=== PATIENT | female | born 1995 | race Caucasian/White ===

== ENCOUNTER 2016-12-28 17:32 | Emergency (ER) | payer BC, MEDICAID ==
[2016-12-28 17:43] VITALS: BP 108/73
[2016-12-28] MEDS ORDERED: Bupivacaine 0.5% 10 ML SDV INJECT ONE (17:54)
--- NOTE | 2016-12-28 18:32 | EDM.PDOC ---
ED HPI GENERAL MEDICAL PROBLEM - General Chief Complaint: ENT Problem Stated Complaint: TOOTH PAIN Time Seen by Provider: 12/28/16 17:39 Source of Information: Reports: Patient History Limitations: Reports: No Limitations - History of Present Illness INITIAL COMMENTS - FREE TEXT/NARRATIVE: The patient presents with dental pain. This has been going on for about a week. She had a filling done but that is not working. She will need to go get a root canal but she is almost 37 weeks and she cannot go at this time. She denies fever or chills. Onset: Gradual Duration: Week(s): Location: Reports: Face (Right lower dental pain) Quality: Reports: Sharp Severity: Severe Improves with: Reports: None Worsens with: Reports: None Associated Symptoms: Reports: No Other Symptoms Right Lower Tooth/Teeth Pain Score (Numeric/FACES): 7 - Related Data Allergies Allergy/AdvReac Type Severity Reaction Status Date / Time No Known Allergies Allergy Verified 05/17/16 16:43 Home Meds: Home Meds Hydrocodone/Acetaminophen [Hydrocodon-Acetaminophen 5-325] 1 - 2 each PO Q6HR PRN #10 tablet 12/28/16 [Rx] PNV95/Ferrous Fumarate/FA [ Tablet] 1 tab PO DAILY 12/28/16 [History] Penicillin V Potassium 500 mg PO Q6HR #40 tab 12/28/16 [Rx] Past Medical History - Past Health History Medical/Surgical History: Denies 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: Other Dermatologic History: skin rash/scabbed area Social & Family History - Family History Family Medical History: Noncontributory - Tobacco Use Smoking Status *Q: Never Smoker Years of Tobacco use: 4 Packs/Tins Daily: 0.5 - Caffeine Use Caffeine Use: Reports: Coffee - Alcohol Use Days Per Week of Alcohol Use: 0 - Recreational Drug Use Recreational Drug Use: Yes Drug Use in Last 12 Months: Yes Recreational Drug Type: Reports: Marijuana/Hashish Recreational Drug Use Frequency: Socially ED ROS ENT - Review of Systems Review Of Systems: See Below Constitutional: Reports: No Symptoms HEENT: Reports: Dental Pain Respiratory: Reports: No Symptoms Cardiovascular: Reports: No Symptoms Endocrine: Reports: No Symptoms GI/Abdominal: Reports: No Symptoms : Reports: No Symptoms Musculoskeletal: Reports: No Symptoms Skin: Reports: No Symptoms ED EXAM, ENT - Physical Exam Exam: See Below Exam Limited By: No Limitations General Appearance: Alert, No Apparent Distress Ears: Normal External Exam Nose: Normal Inspection Mouth/Throat: Other (Pain upon palpation to the right lower jaw with erythema and edema) Course - Vital Signs Last Recorded V/S: Last Vital Signs Temp 98.7 F 12/28/16 17:39 Pulse 94 12/28/16 17:39 Resp 18 12/28/16 17:39 BP 108/73 12/28/16 17:39 Pulse Ox 99 12/28/16 17:39 - Orders/Labs/Meds Meds: Medications Discontinued Medications Generic Name Dose Route Start Last Admin Trade Name Dora PRN Reason Stop Dose Admin Bupivacaine HCl 10 ml 12/28/16 17:54 Sensorcaine-Mpf 0.5% INJECT 12/28/16 17:55 ONETIME ONE - Re-Assessments/Exams Free Text/Narrative Re-Assessment/Exam: 12/28/16 18:29 I used bupivocaine 0.5% to do a dental block. I injected 3ccs of the bupivocaine and I did an inferior alveolar block. She had good anaesthesia obtained. I will get her on some pen VK and 10 hydrocodone. She needs to follow up with her dentist. Departure - Departure Time of Disposition: 18:35 Disposition: Home, Self-Care 01 Condition: Good Clinical Impression: Dental abscess, Pain, dental - Discharge Information Prescriptions: Hydrocodone/Acetaminophen [Hydrocodon-Acetaminophen 5-325] 1 - 2 each PO Q6HR PRN #10 tablet PRN Reason: Pain Penicillin V Potassium 500 mg PO Q6HR #40 tab Referrals: Gayathri Alcantar PA-C [Primary Care Provider] - Forms: ED Department Discharge Additional Instructions: Take the amoxicillin 4 times per day. Take the hydrocodone 1 to 2 pills every 6 hours as needed for pain. Please return if you are worse.
== END 2016-12-28 18:50 | disposition home or self-care (01) ==
LOC: JD.ED 17:32
DX: O99.613 Diseases of the digestive system complicating pregnancy, third trimester (principal); K04.7 Periapical abscess without sinus; Z3A.37 37 weeks gestation of pregnancy
CPT/HCPCS: 64400; 99283-25

== ENCOUNTER 2017-01-25 03:58 | Inpatient (IN) | payer MEDICAID ==
[2017-01-25] MEDS: Lactated Ringers 1,000 ML IV SCH ×4 (04:35→16:55)
[2017-01-25] MEDS ORDERED: Nalbuphine 20 MG/1 ML Amp IVPUSH PRN (04:40)
[2017-01-25] MEDS ORDERED: Sodium Chloride 0.9% 10 ML Syringe FLUSH PRN (04:40)
[2017-01-25] MEDS ORDERED: Lidocaine 1% 50 ML MDV INJECT ONE (04:40)
[2017-01-25] MEDS ORDERED: Ondansetron 4 MG/2 ML SDV IVPUSH PRN (04:40)
[2017-01-25] MEDS ORDERED: Oxytocin/Lactated Ringers 10 UNIT/1,000 ML BAG IV SCH ×2 (04:45→17:00)
[2017-01-25] MEDS ORDERED: ePHEDrine 50 MG/ML SDV IVPUSH PRN (04:53)
[2017-01-25] MEDS ORDERED: diphenhydrAMINE 50 MG/ML SDV IVPUSH PRN (04:53)
[2017-01-25] MEDS ORDERED: fentaNYL 100 MCG/2 ML SDV EPIDUR PRN (04:53)
[2017-01-25] MEDS ORDERED: Bupivacaine/fentaNYL/NS 100 ML Bag EPIDUR SCH (05:00)
[2017-01-25] MEDS ORDERED: fentaNYL 100 MCG/2 ML SDV ONE (05:09)
--- NOTE | 2017-01-25 05:28 | PCM.PREANE ---
Preanesthetic Assessment - Anesthesia/Transfusion/Family Hx Anesthesia History: No Prior Anesthesia Family History of Anesthesia Reaction: No Transfusion History: No Prior Transfusion(s) - Review of Systems General: No Symptoms Pulmonary: No Symptoms Cardiovascular: No Symptoms Gastrointestinal: No Symptoms Neurological: No Symptoms Other: Reports: None - Physical Assessment Pulse: 74 O2 Sat by Pulse Oximetry: 97 Respiratory Rate: 20 Blood Pressure: 116/56 Temperature: 37.1 C Height: 1.63 m Weight: 80.286 kg ASA Class: 2 Mental Status: Alert & Oriented x3 Airway Class: Mallampati = 1 Dentition: Reports: Normal Dentition Thyro-Mental Finger Breadths: 3 Mouth Opening Finger Breadths: 3 ROM/Head Extension: Full Lungs: Clear to Auscultation, Normal Respiratory Effort Cardiovascular: Regular Rate, Regular Rhythm - Lab Values: Laboratory Last Values WBC 16.95 K/mm3 (3.98-10.04) H 01/25/17 04:32 RBC 3.47 M/mm3 (3.98-5.22) L 01/25/17 04:32 Hgb 11.8 gm/L (11.2-15.7) 01/25/17 04:32 Hct 33.9 % (34.1-44.9) L 01/25/17 04:32 MCV 97.7 fl (79.4-94.8) H 01/25/17 04:32 MCH 34.0 pg (25.6-32.2) H 01/25/17 04:32 MCHC 34.8 g/dl (32.2-35.5) 01/25/17 04:32 RDW Std Deviation 44.8 fL (36.4-46.3) 01/25/17 04:32 Plt Count 234 K/mm3 (182-369) 01/25/17 04:32 MPV 11.0 fl (9.4-12.3) 01/25/17 04:32 Neut % (Auto) 75.3 % (34.0-71.1) H 01/25/17 04:32 Lymph % (Auto) 13.9 % (19.3-51.7) L 01/25/17 04:32 [place] % (Auto) 10.0 % (4.7-12.5) 01/25/17 04:32 Eos % (Auto) 0.4 (0.7-5.8) L 01/25/17 04:32 Baso % (Auto) 0.1 % (0.1-1.2) 01/25/17 04:32 Neut # (Auto) 12.76 K/mm3 (1.56-6.13) H 01/25/17 04:32 Lymph # (Auto) 2.36 K/mm3 (1.18-3.74) 01/25/17 04:32 [place] # (Auto) 1.69 K/mm3 (0.24-0.36) H 01/25/17 04:32 Eos # (Auto) 0.07 K/mm3 (0.04-0.36) 01/25/17 04:32 Baso # (Auto) 0.02 K/mm3 (0.01-0.08) 01/25/17 04:32 - Allergies Allergies/Adverse Reactions: Allergies Allergy/AdvReac Type Severity Reaction Status Date / Time No Known Allergies Allergy Verified 01/25/17 04:40 - Anesthesia Plan Pre-Op Medication Ordered: None - Acknowledgements Anesthesia Type Planned: Epidural Pt an Appropriate Candidate for the Planned Anesthesia: Yes Alternatives and Risks of Anesthesia Discussed w Pt/Guardian: Yes Pt/Guardian Understands and Agrees with Anesthesia Plan: Yes PreAnesthesia Questionnaire - Past Health History Medical/Surgical History: Denies Medical/Surgical History Gastrointestinal History: Reports: GERD APPLICATION SUPPORT History: Reports: Other Dermatologic History: skin rash/scabbed area - SUBSTANCE USE Smoking Status *Q: Never Smoker Tobacco Use Within Last Twelve Months: Cigarettes Days Per Week of Alcohol Use: 0 Recreational Drug Use History: Yes Recreational Drug Type: Reports: Marijuana/Hashish - HOME MEDS Home Medications: Home Meds Hydrocodone/Acetaminophen [Hydrocodon-Acetaminophen 5-325] 1 - 2 each PO Q6HR PRN #10 tablet 12/28/16 [Rx] PNV95/Ferrous Fumarate/FA [ Tablet] 1 tab PO DAILY 12/28/16 [History] Penicillin V Potassium 500 mg PO Q6HR #40 tab 12/28/16 [Rx] - CURRENT (IN HOUSE) MEDS Current Meds: Current Medications Diphenhydramine HCl (Benadryl) 25 mg IVPUSH Q6H PRN PRN Reason: Itching Ephedrine Sulfate (Ephedrine Sulfate) 5 mg IVPUSH ASDIRECTED PRN PRN Reason: HYPOTENTSION Fentanyl (Sublimaze) 100 mcg EPIDUR Q3H PRN PRN Reason: PAIN Last Admin: 01/25/17 05:17 Dose: 100 mcg Fentanyl/Bupivacaine HCl (Fentanyl/Bupivacaine/Ns 2 Mcg-0.125% 100 Ml) 100 ml EPIDUR ASDIRECTED LAZ Last Admin: 01/25/17 05:17 Dose: 100 ml Lactated Ringer's (Ringers, Lactated) 1,000 mls @ 100 mls/hr IV ASDIRECTED LAZ Oxytocin/Lactated Ringer's (Pitocin In Lr 10 Units/1,000 Ml) 10 unit in 1,000 mls @ 500 mls/hr IV .CONTINUOUS [facility] Nalbuphine HCl (Nubain) 10 mg IVPUSH Q2H PRN PRN Reason: Pain (moderate 4-6) Ondansetron HCl (Zofran) 4 mg IVPUSH Q4H PRN PRN Reason: Nausea/Vomiting Sodium Chloride (Saline Flush) 10 ml FLUSH ASDIRECTED PRN PRN Reason: Keep Vein Open Discontinued Medications Fentanyl (Sublimaze) Confirm Administered Dose 100 mcg .ROUTE .STK-MED ONE Stop: 01/25/17 05:10 Lidocaine HCl (Xylocaine 1%) 50 ml INJECT ONETIME ONE Stop: 01/25/17 04:41
--- NOTE | 2017-01-25 07:29 | PCM.LDHP ---
L&D History of Present Illness - General Date of Service: 01/25/17 Admit Problem/Dx: Patient Status Order with Admit Dx/Problem 01/25/17 04:41 Patient Status [ADT] Routine Admission Diagnosis/Problem Admission Diagnosis/Problem Normal labor Source of Information: Patient History Limitations: Reports: No Limitations - History of Present Illness Introduction:: Patient is a 21 y/o at 40 5/7 wks who presented in labor. Initially had presented yesterday in latent labor and was sent home as only 1-2 cm. Re- presented earlier this AM and found to be 4 cm. Doing well since. Now has received her epidural. 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: Reports: : 1 Para: 0 LMP (Approximate): Psychiatric History: Reports: Addiction, Other (See Below) Other Psychiatric History: Hx of drug use, TCH, cocaine, methamphetamines Other Dermatologic History: skin rash/scabbed area Social & Family History - Family History Family Medical History: Noncontributory - Tobacco Use Smoking Status *Q: Never Smoker Years of Tobacco use: 4 Packs/Tins Daily: 0.5 Used Tobacco, but Quit: Yes Month Tobacco Last Used: august Second Hand Smoke Exposure: Yes - Caffeine Use Caffeine Use: Reports: Coffee - Alcohol Use Alcohol Use History: No Days Per Week of Alcohol Use: 0 - Recreational Drug Use Recreational Drug Use: Yes Drug Use in Last 12 Months: Yes Recreational Drug Type: Reports: Marijuana/Hashish Other Recreational Drug Type: see pre terrence Recreational Drug Use Frequency: Socially H&P Review of Systems - Review of Systems: Review Of Systems: See Below General: Reports: No Symptoms Pulmonary: Reports: No Symptoms Cardiovascular: Reports: No Symptoms Gastrointestinal: Reports: Abdominal Pain Genitourinary: Reports: No Symptoms Musculoskeletal: Reports: No Symptoms Psychiatric: Reports: No Symptoms L&D Exam - Exam Exam: See Below - Vital Signs Vital Signs: Last Vital Signs Temp 37.1 C 01/25/17 05:27 Pulse 74 01/25/17 05:27 Resp 20 01/25/17 05:27 BP 116/56 L 01/25/17 05:27 Pulse Ox 97 01/25/17 05:27 Weight: 80.286 kg - OB Specific Contraction Intensity: Moderate Movement: Active Heart Tones: Present Heart Tones per Min: 140 Heart Rate (FHR) Variability: Moderate (6-25 bmp) Presentation: Vertex - Elizabeth Score Elizabeth Score Effacement: 51-70% Elizabeth Score Dilation: 3-4 cm (Per nursing assessment) Elizabeth Score Infant's Station: -1 ,0 - Exam General: Alert, Oriented, Cooperative Lungs: Clear to Auscultation, Normal Respiratory Effort Cardiovascular: Regular Rate, Regular Rhythm GI/Abdominal Exam: Soft, Non-Tender Genitourinary: Normal external exam Extremities: Normal Inspection Skin: Warm, Dry, Intact - Patient Data Lab Results Last 24 hrs: Laboratory Results - last 24 hr 01/25/17 01/25/17 Range/Units 04:32 04:32 WBC 16.95 H (3.98-10.04) K/mm3 RBC 3.47 L (3.98-5.22) M/mm3 Hgb 11.8 (11.2-15.7) gm/L Hct 33.9 L (34.1-44.9) % MCV 97.7 H (79.4-94.8) fl MCH 34.0 H (25.6-32.2) pg MCHC 34.8 (32.2-35.5) g/dl RDW Std Deviation 44.8 (36.4-46.3) fL Plt Count 234 (182-369) K/mm3 MPV 11.0 (9.4-12.3) fl Neut % (Auto) 75.3 H (34.0-71.1) % Lymph % (Auto) 13.9 L (19.3-51.7) % [place] % (Auto) 10.0 (4.7-12.5) % Eos % (Auto) 0.4 L (0.7-5.8) Baso % (Auto) 0.1 (0.1-1.2) % Neut # (Auto) 12.76 H (1.56-6.13) K/mm3 Lymph # (Auto) 2.36 (1.18-3.74) K/mm3 [place] # (Auto) 1.69 H (0.24-0.36) K/mm3 Eos # (Auto) 0.07 (0.04-0.36) K/mm3 Baso # (Auto) 0.02 (0.01-0.08) K/mm3 Manual Slide Review Normal smear Blood Type A NEGATIVE Gel Antibody Screen Negative Result Diagrams: 01/25/17 04:32 - Problem List (1) 40 weeks gestation of SNOMED Code(s): 24993012 ICD Code: Z3A.40 - 40 WEEKS GESTATION OF Status: Acute Current Visit: Yes (2) Normal labor SNOMED Code(s): 62950467 ICD Code: O80 - ENCOUNTER FOR FULL-TERM UNCOMPLICATED DELIVERY; Z37.9 - OUTCOME OF DELIVERY, UNSPECIFIED Status: Acute Current Visit: Yes (3) Rh negative state in antepartum period SNOMED Code(s): 920662721, 080513135 ICD Code: O09.899 - SUPERVISION OF OTHER HIGH RISK PREGNANCIES, UNSP TRIMESTER Status: Acute Current Visit: Yes Problem List Initiated/Reviewed/Updated: Yes Orders Last 24hrs: Active Orders 24 hr Category Date Time Status Patient Status [ADT] Routine ADT 01/25/17 04:41 Active Activity as Tolerated [RC] PFP Care 01/25/17 04:41 Active Communication Order [RC] ASDIRECTED Care 01/25/17 04:41 Active Communication Order [RC] ASDIRECTED Care 01/25/17 04:53 Active Cooling Warming Measures [RC] ASDIRECTED Care 01/25/17 04:53 Active Heart Tones [RC] ASDIRECTED Care 01/25/17 04:41 Active Notify Provider [RC] ASDIRECTED Care 01/25/17 04:53 Active Notify Provider [RC] PFP Care 01/25/17 04:41 Active Notify Provider [RC] PRN Care 01/25/17 04:41 Active Oxygen Therapy [RC] ASDIRECTED Care 01/25/17 04:53 Active Peripheral IV Care [RC] . DIRECTED Care 01/25/17 04:41 Active Pulse Oximetry [RC] ASDIRECTED Care 01/25/17 04:53 Active Verify Patient Consent Obtain [RC] ASDIRECTED Care 01/25/17 04:53 Active Vital Signs [RC] PER UNIT ROUTINE Care 01/25/17 04:41 Active Vital Signs [RC] Q1H Care 01/25/17 04:53 Active Regular Diet [DIET] Diet 01/25/17 Breakfast Active PATIENT RETYPE [BBK] Stat Lab 01/25/17 04:32 Results TYPE AND SCREEN [BBK] Stat Lab 01/25/17 04:32 Results Bupivacaine/fentaNYL/NS [fentaNYL/Bupivacaine/NS 2 MCG- Med 01/25/17 05:00 Active 0.125% 100 ML] 100 ml EPIDUR ASDIRECTED Lactated Ringers [Ringers, Lactated] 1,000 ml Med 01/25/17 04:45 Active IV ASDIRECTED Nalbuphine [Nubain] Med 01/25/17 04:40 Active 10 mg IVPUSH Q2H PRN Ondansetron [Zofran] Med 01/25/17 04:40 Active 4 mg IVPUSH Q4H PRN Oxytocin/Lactated Ringers [Pitocin in LR 10 Units/1,000 Med 01/25/17 04:45 Active ML] 10 unit in 1,000 ml IV .CONTINUOUS Sodium Chloride 0.9% [Saline Flush] Med 01/25/17 04:40 Active 10 ml FLUSH ASDIRECTED PRN diphenhydrAMINE [Benadryl] Med 01/25/17 04:53 Active 25 mg IVPUSH Q6H PRN ePHEDrine [ePHEDrine Sulfate] Med 01/25/17 04:53 Active 5 mg IVPUSH ASDIRECTED PRN fentaNYL [Sublimaze] Med 01/25/17 04:53 Active 100 mcg EPIDUR Q3H PRN Electronic Heart Tones Ext w TOCO [WOMSER] Oth 01/25/17 04:41 Ordered Routine Electronic Heart Tones Internal [WOMSER] Per Unit Oth 01/25/17 04:41 Ordered Routine Peripheral IV Insertion Adult [OM.PC] Routine Oth 01/25/17 04:41 Ordered Resuscitation Status Routine Resus Stat 01/25/17 04:40 Ordered Medication Orders Diphenhydramine HCl (Benadryl) 25 mg IVPUSH Q6H PRN PRN Reason: Itching Ephedrine Sulfate (Ephedrine Sulfate) 5 mg IVPUSH ASDIRECTED PRN PRN Reason: HYPOTENTSION Fentanyl (Sublimaze) 100 mcg EPIDUR Q3H PRN PRN Reason: PAIN Last Admin: 01/25/17 05:17 Dose: 100 mcg Fentanyl/Bupivacaine HCl (Fentanyl/Bupivacaine/Ns 2 Mcg-0.125% 100 Ml) 100 ml EPIDUR ASDIRECTED LAZ Last Admin: 01/25/17 05:17 Dose: 100 ml Lactated Ringer's (Ringers, Lactated) 1,000 mls @ 100 mls/hr IV ASDIRECTED LAZ Oxytocin/Lactated Ringer's (Pitocin In Lr 10 Units/1,000 Ml) 10 unit in 1,000 mls @ 500 mls/hr IV .CONTINUOUS LAZ Nalbuphine HCl (Nubain) 10 mg IVPUSH Q2H PRN PRN Reason: Pain (moderate 4-6) Ondansetron HCl (Zofran) 4 mg IVPUSH Q4H PRN PRN Reason: Nausea/Vomiting Sodium Chloride (Saline Flush) 10 ml FLUSH ASDIRECTED PRN PRN Reason: Keep Vein Open Assessment/Plan Comment:: 21 t/o at 40 5/7 wks who presents in labor * CBC and T&S * UDS for hx of drug use (prior to ) and cord collection at delivery * GBS negative, no need for antibiotics * Epidural in place * Rh negative, assess baby blood type after delivery * Anticipate
--- NOTE | 2017-01-25 16:50 | PCM.PNLD ---
Labor Progress Note - VS & Meds Vital Signs: Last Vital Signs Temp 37.1 C 01/25/17 05:27 Pulse 74 01/25/17 05:27 Resp 20 01/25/17 05:27 BP 116/56 L 01/25/17 05:27 Pulse Ox 97 01/25/17 05:27 Active Medications: Current Medications Diphenhydramine HCl (Benadryl) 25 mg IVPUSH Q6H PRN PRN Reason: Itching Ephedrine Sulfate (Ephedrine Sulfate) 5 mg IVPUSH ASDIRECTED PRN PRN Reason: HYPOTENTSION Fentanyl (Sublimaze) 100 mcg EPIDUR Q3H PRN PRN Reason: PAIN Last Admin: 01/25/17 05:17 Dose: 100 mcg Fentanyl/Bupivacaine HCl (Fentanyl/Bupivacaine/Ns 2 Mcg-0.125% 100 Ml) 100 ml EPIDUR ASDIRECTED LAZ Last Admin: 01/25/17 05:17 Dose: 100 ml Lactated Ringer's (Ringers, Lactated) 1,000 mls @ 100 mls/hr IV ASDIRECTED LAZ Last Admin: 01/25/17 08:50 Dose: 100 mls/hr Oxytocin/Lactated Ringer's (Pitocin In Lr 10 Units/1,000 Ml) 10 unit in 1,000 mls @ 500 mls/hr IV .CONTINUOUS LAZ Nalbuphine HCl (Nubain) 10 mg IVPUSH Q2H PRN PRN Reason: Pain (moderate 4-6) Ondansetron HCl (Zofran) 4 mg IVPUSH Q4H PRN PRN Reason: Nausea/Vomiting Sodium Chloride (Saline Flush) 10 ml FLUSH ASDIRECTED PRN PRN Reason: Keep Vein Open Discontinued Medications Fentanyl (Sublimaze) Confirm Administered Dose 100 mcg .ROUTE .STK-MED ONE Stop: 01/25/17 05:10 Last Admin: 01/25/17 13:57 Dose: Not Given Lidocaine HCl (Xylocaine 1%) 50 ml INJECT ONETIME ONE Stop: 01/25/17 04:41 - Uterine Contractions Uterine Monitoring Mode: External [place] Contraction Intensity: Moderate Uterine Resting Tone: Soft - Monitoring Monitor Mode: External Ultrasound Heart Rate (FHR) Baseline: 135 Heart Rate (FHR) Variability: Moderate (6-25 bmp) Accelerations: Present, 15x15 Decelerations: None Strip Review: Category II - Labor Progress (Free Text) Labor Progress: Patient checked around 1130 and was 6 cm. Will allow patient to continue to labor on her own. Reassess as needed.
--- NOTE | 2017-01-25 16:51 | PCM.PNLD ---
Labor Progress Note - VS & Meds Vital Signs: Last Vital Signs Temp 37.1 C 01/25/17 05:27 Pulse 74 01/25/17 05:27 Resp 20 01/25/17 05:27 BP 116/56 L 01/25/17 05:27 Pulse Ox 97 01/25/17 05:27 Active Medications: Current Medications Diphenhydramine HCl (Benadryl) 25 mg IVPUSH Q6H PRN PRN Reason: Itching Ephedrine Sulfate (Ephedrine Sulfate) 5 mg IVPUSH ASDIRECTED PRN PRN Reason: HYPOTENTSION Fentanyl (Sublimaze) 100 mcg EPIDUR Q3H PRN PRN Reason: PAIN Last Admin: 01/25/17 05:17 Dose: 100 mcg Fentanyl/Bupivacaine HCl (Fentanyl/Bupivacaine/Ns 2 Mcg-0.125% 100 Ml) 100 ml EPIDUR ASDIRECTED LAZ Last Admin: 01/25/17 05:17 Dose: 100 ml Lactated Ringer's (Ringers, Lactated) 1,000 mls @ 100 mls/hr IV ASDIRECTED LAZ Last Admin: 01/25/17 08:50 Dose: 100 mls/hr Oxytocin/Lactated Ringer's (Pitocin In Lr 10 Units/1,000 Ml) 10 unit in 1,000 mls @ 500 mls/hr IV .CONTINUOUS LAZ Nalbuphine HCl (Nubain) 10 mg IVPUSH Q2H PRN PRN Reason: Pain (moderate 4-6) Ondansetron HCl (Zofran) 4 mg IVPUSH Q4H PRN PRN Reason: Nausea/Vomiting Sodium Chloride (Saline Flush) 10 ml FLUSH ASDIRECTED PRN PRN Reason: Keep Vein Open Discontinued Medications Fentanyl (Sublimaze) Confirm Administered Dose 100 mcg .ROUTE .STK-MED ONE Stop: 01/25/17 05:10 Last Admin: 01/25/17 13:57 Dose: Not Given Lidocaine HCl (Xylocaine 1%) 50 ml INJECT ONETIME ONE Stop: 01/25/17 04:41 - Uterine Contractions Uterine Monitoring Mode: External [place] Contraction Intensity: Moderate Uterine Resting Tone: Soft - Monitoring Monitor Mode: External Ultrasound Heart Rate (FHR) Baseline: 140 Heart Rate (FHR) Variability: Moderate (6-25 bmp) Accelerations: Present, 15x15 Decelerations: None Strip Review: Category II - Vaginal Exam Dilation (cm): 8 Effacement (Percent): 90 Station: 0 Cervical Position: Midposition - Labor Progress (Free Text) Labor Progress: Patient checked by nursing at approximately 1445 and 8 cm. Still currently 8 cm. AROM performed with release of clear fluid. Will reassess in another 2-3 hours. If no change at that time will initiate pitocin.
--- NOTE | 2017-01-25 21:45 | PCM.DEL ---
L & D Note - General Info Date of Service: 01/25/17 - Delivery Note Labor: Augmented by ARM, Augmented by Oxytocin Delivery Outcome: Livebirth Infant Delivery Method: Spontaneous Vaginal Delivery Presentation: Left Occiput Anterior (ROME) Nuchal Cord: None Anesthesia Type: Epidural Amniotic Fluid Description: Clear Episiotomy Type: None Laceration: 2nd Degree, Perineal Suture type: Vicryl Suture size: 2-0 Placenta: Intact, Spontaneous Cord: 3 Vessels Estimated Blood Loss: 250 Resuscitation Needed: Yes [place]: Suctioned, Stimulated, Warmed, [place] Used, Warmer Used Delivery Comments (Free Text/Narrative):: Patient found to be complete and began pushing. With maternal pushing effort head delivered from an ROME presentation. No nuchal cord present. With gentle downward traction the shoulders and body delivered. Infant placed on maternal abdomen. Cord clamped and cut. Cord blood obtained. Placenta allowed time to separate and spontaneously expelled. Inspection of the perineum showed a second-degree laceration which was repaired with a 2-0 Vicryl in the typical fashion. - Patient Data Vitals - Most Recent: Last Vital Signs Temp 37.1 C 01/25/17 05:27 Pulse 74 01/25/17 05:27 Resp 20 01/25/17 05:27 BP 116/56 L 01/25/17 05:27 Pulse Ox 97 01/25/17 05:27 Weight - Most Recent: 80.286 kg I&O - Last 24 Hours: Intake & Output 01/25/17 01/25/17 01/25/17 06:59 14:59 22:59 Intake Total 120 Balance 120 Lab Results Last 24 Hours: Laboratory Results - last 24 hr 01/25/17 01/25/17 Range/Units 04:32 04:32 WBC 16.95 H (3.98-10.04) K/mm3 RBC 3.47 L (3.98-5.22) M/mm3 Hgb 11.8 (11.2-15.7) gm/L Hct 33.9 L (34.1-44.9) % MCV 97.7 H (79.4-94.8) fl MCH 34.0 H (25.6-32.2) pg MCHC 34.8 (32.2-35.5) g/dl RDW Std Deviation 44.8 (36.4-46.3) fL Plt Count 234 (182-369) K/mm3 MPV 11.0 (9.4-12.3) fl Neut % (Auto) 75.3 H (34.0-71.1) % Lymph % (Auto) 13.9 L (19.3-51.7) % [place] % (Auto) 10.0 (4.7-12.5) % Eos % (Auto) 0.4 L (0.7-5.8) Baso % (Auto) 0.1 (0.1-1.2) % Neut # (Auto) 12.76 H (1.56-6.13) K/mm3 Lymph # (Auto) 2.36 (1.18-3.74) K/mm3 [place] # (Auto) 1.69 H (0.24-0.36) K/mm3 Eos # (Auto) 0.07 (0.04-0.36) K/mm3 Baso # (Auto) 0.02 (0.01-0.08) K/mm3 Manual Slide Review Normal smear Blood Type A NEGATIVE Gel Antibody Screen Negative Med Orders - Current: Current Medications Diphenhydramine HCl (Benadryl) 25 mg IVPUSH Q6H PRN PRN Reason: Itching Ephedrine Sulfate (Ephedrine Sulfate) 5 mg IVPUSH ASDIRECTED PRN PRN Reason: HYPOTENTSION Fentanyl (Sublimaze) 100 mcg EPIDUR Q3H PRN PRN Reason: PAIN Last Admin: 01/25/17 05:17 Dose: 100 mcg Fentanyl/Bupivacaine HCl (Fentanyl/Bupivacaine/Ns 2 Mcg-0.125% 100 Ml) 100 ml EPIDUR ASDIRECTED LAZ Last Admin: 01/25/17 05:17 Dose: 100 ml Lactated Ringer's (Ringers, Lactated) 1,000 mls @ 100 mls/hr IV ASDIRECTED LAZ Last Admin: 01/25/17 16:55 Dose: 100 mls/hr Oxytocin/Lactated Ringer's (Pitocin In Lr 10 Units/1,000 Ml) 10 unit in 1,000 mls @ 500 mls/hr IV .CONTINUOUS LAZ Oxytocin/Lactated Ringer's (Pitocin In Lr 10 Units/1,000 Ml) 10 unit in 1,000 mls @ 12 mls/hr IV TITRATE LAZ; 2 MUNITS/MIN PRN Reason: Protocol Last Admin: 01/25/17 17:16 Dose: 2 munits/min, 12 mls/hr Nalbuphine HCl (Nubain) 10 mg IVPUSH Q2H PRN PRN Reason: Pain (moderate 4-6) Ondansetron HCl (Zofran) 4 mg IVPUSH Q4H PRN PRN Reason: Nausea/Vomiting Sodium Chloride (Saline Flush) 10 ml FLUSH ASDIRECTED PRN PRN Reason: Keep Vein Open Discontinued Medications Fentanyl (Sublimaze) Confirm Administered Dose 100 mcg .ROUTE .STK-MED ONE Stop: 01/25/17 05:10 Last Admin: 01/25/17 13:57 Dose: Not Given Lidocaine HCl (Xylocaine 1%) 50 ml INJECT ONETIME ONE Stop: 01/25/17 04:41 - Problem List & Annotations (1) 40 weeks gestation of SNOMED Code(s): 80914384 Code(s): Z3A.40 - 40 WEEKS GESTATION OF Status: Acute Current Visit: Yes (2) Normal labor SNOMED Code(s): 61431729 Code(s): O80 - ENCOUNTER FOR FULL-TERM UNCOMPLICATED DELIVERY; Z37.9 - OUTCOME OF DELIVERY, UNSPECIFIED Status: Acute Current Visit: Yes (3) Rh negative state in antepartum period SNOMED Code(s): 435431499, 115800100 Code(s): O09.899 - SUPERVISION OF OTHER HIGH RISK PREGNANCIES, UNSP TRIMESTER Status: Acute Current Visit: Yes - Problem List Review Problem List Initiated/Reviewed/Updated: Yes - My Orders Last 24 Hours: My Active Orders 01/25/17 04:40 Nalbuphine [Nubain] 10 mg IVPUSH Q2H PRN Ondansetron [Zofran] 4 mg IVPUSH Q4H PRN Sodium Chloride 0.9% [Saline Flush] 10 ml FLUSH ASDIRECTED PRN Resuscitation Status Routine 01/25/17 04:41 Patient Status [ADT] Routine Activity as Tolerated [RC] PFP Communication Order [RC] ASDIRECTED Heart Tones [RC] ASDIRECTED Notify Provider [RC] PFP Notify Provider [RC] PRN Peripheral IV Care [RC] . DIRECTED Vital Signs [RC] PER UNIT ROUTINE Electronic Heart Tones Ext w TOCO [WOMSER] Routine Electronic Heart Tones Internal [WOMSER] Per Unit Routine Peripheral IV Insertion Adult [OM.PC] Routine 01/25/17 04:45 Lactated Ringers [Ringers, Lactated] 1,000 ml IV ASDIRECTED Oxytocin/Lactated Ringers [Pitocin in LR 10 Units/1,000 ML] 10 unit in 1,000 ml IV .CONTINUOUS 01/25/17 17:00 Oxytocin/Lactated Ringers [Pitocin in LR 10 Units/1,000 ML] 10 unit in 1,000 ml IV TITRATE 01/25/17 21:31 DRUG SCREEN, URINE [URCHEM] Routine 01/25/17 21:32 Patient Status Manage Transfer [TRANSFER] Routine 01/25/17 Breakfast Regular Diet [DIET] - Assessment Assessment:: 21 y/o G1 now P1001 PPD#0 from at 40 5/7 wks - Plan Plan:: * Routine cares * Encourage breast feeding * Rh negative, assess baby blood type after delivery * Discharge home tomorrow
[2017-01-25] MEDS ORDERED: Bupivacaine 0.25% 10 ML SDV ONE (22:22)
[2017-01-25] MEDS ORDERED: Docusate Sodium 100 MG Cap PO PRN (23:36)
[2017-01-25] MEDS ORDERED: Benzocaine/Menthol 20%-0.5% Spray 56 GM Canister TOP PRN (23:36)
[2017-01-25] MEDS ORDERED: Witch Hazel Medicated Pads 100/Jar TOP PRN (23:36)
[2017-01-25] MEDS ORDERED: Acetaminophen 325 MG Tab PO PRN (23:36)
[2017-01-25] MEDS ORDERED: Lanolin 100% Cream 7 GM Tube TOP PRN (23:36)
[2017-01-25] MEDS: Ibuprofen 600 MG Tab PO PRN (23:50)
--- NOTE | 2017-01-26 08:04 | PCM.PNPP ---
- General Info Date of Service: 01/26/17 Functional Status: Reports: Pain Controlled, Tolerating Diet, Ambulating, Urinating - Review of Systems General: Reports: No Symptoms Pulmonary: Reports: No Symptoms Cardiovascular: Reports: No Symptoms Gastrointestinal: Reports: No Symptoms Genitourinary: Reports: Other (Swelling / soreness) Musculoskeletal: Reports: No Symptoms Neurological: Reports: No Symptoms - Patient Data Vital Signs - Most Recent: Last Vital Signs Temp 37.1 C 01/25/17 05:27 Pulse 74 01/25/17 05:27 Resp 20 01/25/17 05:27 BP 116/56 L 01/25/17 05:27 Pulse Ox 97 01/25/17 05:27 Weight - Most Recent: 80.286 kg Lab Results - Last 24 Hours: Laboratory Results - last 24 hr 01/25/17 Range/Units 04:32 Blood Type A NEGATIVE Gel Antibody Screen Negative Med Orders - Current: Current Medications Acetaminophen (Tylenol) 650 mg PO Q4H PRN PRN Reason: mild pain or fever Benzocaine/Menthol (Dermoplast Pain Relief [place]) 0 gm TOP ASDIRECTED PRN PRN Reason: Perineal Comfort Measure Last Admin: 01/25/17 23:49 Dose: 1 sprays(dnu) Docusate Sodium (Colace) 100 mg PO BID PRN PRN Reason: Constipation Last Admin: 01/25/17 23:50 Dose: 100 mg Emollient Ointment (Lansinoh Hpa) 0 gm TOP ASDIRECTED PRN PRN Reason: Sore Nipples Ibuprofen (Motrin) 600 mg PO Q6H PRN PRN Reason: Mild pain or fever Last Admin: 01/25/17 23:50 Dose: 600 mg Witch Kayy (Tucks) 1 pad TOP ASDIRECTED PRN PRN Reason: Hemorrhoid pain Last Admin: 01/25/17 23:49 Dose: 1 applic Discontinued Medications Diphenhydramine HCl (Benadryl) 25 mg IVPUSH Q6H PRN PRN Reason: Itching Ephedrine Sulfate (Ephedrine Sulfate) 5 mg IVPUSH ASDIRECTED PRN PRN Reason: HYPOTENTSION Fentanyl (Sublimaze) 100 mcg EPIDUR Q3H PRN PRN Reason: PAIN Last Admin: 01/25/17 05:17 Dose: 100 mcg Fentanyl (Sublimaze) Confirm Administered Dose 100 mcg .ROUTE .STK-MED ONE Stop: 01/25/17 05:10 Last Admin: 01/25/17 13:57 Dose: Not Given Fentanyl/Bupivacaine HCl (Fentanyl/Bupivacaine/Ns 2 Mcg-0.125% 100 Ml) 100 ml EPIDUR ASDIRECTED LAZ Last Admin: 01/25/17 05:17 Dose: 100 ml Lactated Ringer's (Ringers, Lactated) 1,000 mls @ 100 mls/hr IV ASDIRECTED LAZ Last Admin: 01/25/17 16:55 Dose: 100 mls/hr Oxytocin/Lactated Ringer's (Pitocin In Lr 10 Units/1,000 Ml) 10 unit in 1,000 mls @ 500 mls/hr IV .CONTINUOUS LAZ Oxytocin/Lactated Ringer's (Pitocin In Lr 10 Units/1,000 Ml) 10 unit in 1,000 mls @ 12 mls/hr IV TITRATE LAZ; 2 MUNITS/MIN PRN Reason: Protocol Last Admin: 01/25/17 17:16 Dose: 2 munits/min, 12 mls/hr Lidocaine HCl (Xylocaine 1%) 50 ml INJECT ONETIME ONE Stop: 01/25/17 04:41 Nalbuphine HCl (Nubain) 10 mg IVPUSH Q2H PRN PRN Reason: Pain (moderate 4-6) Ondansetron HCl (Zofran) 4 mg IVPUSH Q4H PRN PRN Reason: Nausea/Vomiting Sodium Chloride (Saline Flush) 10 ml FLUSH ASDIRECTED PRN PRN Reason: Keep Vein Open - Interaction Infant Disposition, : [place] in Room with Family Interaction: Holding Infant Infant Feeding: Attempted ; Nursed Fair/Poor, Bottle Fed Infant Support Person: Mother, Other (see below) - Recovery Exam Fundal Tone: Firm Fundal Level: At Umbilicus Fundal Placement: Midline Bladder Status: Voiding Urinary Elimination: Voided - Exam General: Alert, Oriented, Cooperative GI/Abdominal Exam: Soft, Non-Tender Extremities: Pedal Edema Skin: Warm, Dry, Intact - Problem List & Annotations (1) 40 weeks gestation of SNOMED Code(s): 76181351 Code(s): Z3A.40 - 40 WEEKS GESTATION OF Status: Acute Current Visit: Yes (2) Normal labor SNOMED Code(s): 12410289 Code(s): O80 - ENCOUNTER FOR FULL-TERM UNCOMPLICATED DELIVERY; Z37.9 - OUTCOME OF DELIVERY, UNSPECIFIED Status: Acute Current Visit: Yes (3) Rh negative state in antepartum period SNOMED Code(s): 848782382, 222871389 Code(s): O09.899 - SUPERVISION OF OTHER HIGH RISK PREGNANCIES, UNSP TRIMESTER Status: Acute Current Visit: Yes (4) Vaginal delivery SNOMED Code(s): 512677058 Code(s): O80 - ENCOUNTER FOR FULL-TERM UNCOMPLICATED DELIVERY Status: Acute Current Visit: Yes - Problem List Review Problem List Initiated/Reviewed/Updated: Yes - My Orders Last 24 Hours: My Active Orders 01/25/17 14:45 DRUG SCREEN, URINE [URCHEM] Routine 01/25/17 23:36 Activity as Tolerated [RC] PER UNIT ROUTINE Vital Signs [RC] ASDIRECTED Acetaminophen [Tylenol] 650 mg PO Q4H PRN Benzocaine/Menthol [Dermoplast Pain Relief [place]] See Dose Instructions TOP ASDIRECTED PRN Docusate Sodium [Colace] 100 mg PO BID PRN Ibuprofen [Motrin] 600 mg PO Q6H PRN Lanolin [Lansinoh HPA] See Dose Instructions TOP ASDIRECTED PRN Witch Kayy [Tucks] 1 pad TOP ASDIRECTED PRN Assess Lochia [WOMSER] Per Unit Routine Assess Uterine Involution [WOMSER] Per Unit Routine Breast Pump [WOMSER] Per Unit Routine Heat Therapy [OM.PC] PRN Ice Therapy [OM.PC] Per Unit Routine Perineal Care [OM.PC] Per Unit Routine Peripheral IV Discontinue [OM.PC] Routine Sitz Bath [OM.PC] Per Unit Routine 01/26/17 23:36 Heat Therapy [OM.PC] PRN - Assessment Assessment:: 21 y/o G1 now P1001 PPD#1 from at 40 5/7 wks - Plan Plan:: * Routine cares * Encourage breast feeding * Rh negative, Baby Rh positive. Will need Rhogam today * Discharge home tomorrow
--- NOTE | 2017-01-26 09:13 | PCM48HPAN ---
Post Anesthesia Note - EVALUATION WITHIN 48HRS OF ANESTHETIC Vital Signs in Normal Range: Yes Patient Participated in Evaluation: Yes Respiratory Function Stable: Yes Airway Patent: Yes Cardiovascular Function Stable: Yes Hydration Status Stable: Yes Pain Control Satisfactory: Yes Nausea and Vomiting Control Satisfactory: Yes Mental Status Recovered: Yes
[2017-01-26] MEDS: Ibuprofen 600 MG Tab PO PRN (11:29)
[2017-01-27 05:29] VITALS: BP 124/80
--- NOTE | 2017-01-27 07:10 | PCM.PNPP ---
- General Info Date of Service: 01/27/17 Functional Status: Reports: Pain Controlled, Tolerating Diet, Ambulating, Urinating - Review of Systems General: Reports: No Symptoms Pulmonary: Reports: No Symptoms Cardiovascular: Reports: No Symptoms Gastrointestinal: Reports: No Symptoms Genitourinary: Reports: No Symptoms Musculoskeletal: Reports: No Symptoms - Patient Data Vital Signs - Most Recent: Last Vital Signs Temp 36.8 C 01/27/17 04:58 Pulse 94 01/27/17 04:58 Resp 16 01/27/17 04:58 BP 124/80 01/27/17 04:58 Pulse Ox 97 01/27/17 04:58 Weight - Most Recent: 80.286 kg I&O - Last 24 Hours: Intake & Output 01/26/17 01/27/17 01/27/17 22:59 06:59 14:59 Intake Total 721 Balance 721 Lab Results - Last 24 Hours: Laboratory Results - last 24 hr 01/25/17 01/26/17 Range/Units 14:45 08:30 Urine Opiates Screen Negative (NEGATIVE) Ur Buprenorphine Scrn Negative (NEGATIVE) Ur Oxycodone Screen Negative (NEGATIVE) Urine Methadone Screen Negative (NEGATIVE) Ur Propoxyphene Screen Negative (NEGATIVE) Ur Barbiturates Screen Negative (NEGATIVE) Ur Tricyclics Screen Negative (NEGATIVE) Ur Phencyclidine Scrn Negative (NEGATIVE) Ur Amphetamine Screen Negative (NEGATIVE) U Methamphetamines Scrn Negative (NEGATIVE) U Benzodiazepines Scrn Negative (NEGATIVE) U Cocaine Metab Screen Negative (NEGATIVE) U Marijuana (THC) Screen Negative (NEGATIVE) Blood Type A NEGATIVE Gel Antibody Screen Negative Screen 0 ros/5 flds - neg RhIG Candidate? Yes Rhogam Indicated Yes, baby rh pos H Med Orders - Current: Current Medications Acetaminophen (Tylenol) 650 mg PO Q4H PRN PRN Reason: mild pain or fever Benzocaine/Menthol (Dermoplast Pain Relief [place]) 0 gm TOP ASDIRECTED PRN PRN Reason: Perineal Comfort Measure Last Admin: 01/25/17 23:49 Dose: 1 sprays(dnu) Docusate Sodium (Colace) 100 mg PO BID PRN PRN Reason: Constipation Last Admin: 01/25/17 23:50 Dose: 100 mg Emollient Ointment (Lansinoh Hpa) 0 gm TOP ASDIRECTED PRN PRN Reason: Sore Nipples Last Admin: 01/27/17 02:22 Dose: 1 applic Ibuprofen (Motrin) 600 mg PO Q6H PRN PRN Reason: Mild pain or fever Last Admin: 01/26/17 11:29 Dose: 600 mg Witch Kayy (Tucks) 1 pad TOP ASDIRECTED PRN PRN Reason: Hemorrhoid pain Last Admin: 01/25/17 23:49 Dose: 1 applic Discontinued Medications Bupivacaine HCl (Sensorcaine-Mpf 0.25%) 10 ml .ROUTE .STK-MED ONE Stop: 01/25/17 22:23 Diphenhydramine HCl (Benadryl) 25 mg IVPUSH Q6H PRN PRN Reason: Itching Ephedrine Sulfate (Ephedrine Sulfate) 5 mg IVPUSH ASDIRECTED PRN PRN Reason: HYPOTENTSION Fentanyl (Sublimaze) 100 mcg EPIDUR Q3H PRN PRN Reason: PAIN Last Admin: 01/25/17 05:17 Dose: 100 mcg Fentanyl (Sublimaze) Confirm Administered Dose 100 mcg .ROUTE .STK-MED ONE Stop: 01/25/17 05:10 Last Admin: 01/25/17 13:57 Dose: Not Given Fentanyl/Bupivacaine HCl (Fentanyl/Bupivacaine/Ns 2 Mcg-0.125% 100 Ml) 100 ml EPIDUR ASDIRECTED LAZ Last Admin: 01/25/17 05:17 Dose: 100 ml Lactated Ringer's (Ringers, Lactated) 1,000 mls @ 100 mls/hr IV ASDIRECTED LAZ Last Admin: 01/25/17 16:55 Dose: 100 mls/hr Oxytocin/Lactated Ringer's (Pitocin In Lr 10 Units/1,000 Ml) 10 unit in 1,000 mls @ 500 mls/hr IV .CONTINUOUS LAZ Oxytocin/Lactated Ringer's (Pitocin In Lr 10 Units/1,000 Ml) 10 unit in 1,000 mls @ 12 mls/hr IV TITRATE LAZ; 2 MUNITS/MIN PRN Reason: Protocol Last Titration: 01/25/17 22:25 Dose: 250 mls/hr Lidocaine HCl (Xylocaine 1%) 50 ml INJECT ONETIME ONE Stop: 01/25/17 04:41 Last Admin: 01/26/17 09:46 Dose: Not Given Nalbuphine HCl (Nubain) 10 mg IVPUSH Q2H PRN PRN Reason: Pain (moderate 4-6) Ondansetron HCl (Zofran) 4 mg IVPUSH Q4H PRN PRN Reason: Nausea/Vomiting Sodium Chloride (Saline Flush) 10 ml FLUSH ASDIRECTED PRN PRN Reason: Keep Vein Open - Interaction Disposition, : [place] in Room with Family Infant Interaction: Holding Infant Feeding: Bottle Fed , Other (see below) (Pumped) Support Person: Mother, Other (see below) - Recovery Exam Fundal Tone: Firm Fundal Level: 1 Fingerbreadths Below Umbilicus Fundal Placement: Right Lochia Amount: Small Lochia Color: Rubra/Red Perineum Description: Edematous Episiotomy/Laceration: Approximated Bladder Status: Voiding Urinary Elimination: Voided - Exam General: Alert, Oriented, Cooperative GI/Abdominal Exam: Soft, Non-Tender Extremities: Normal Inspection Skin: Warm, Dry, Intact - Problem List & Annotations (1) 40 weeks gestation of SNOMED Code(s): 03900091 Code(s): Z3A.40 - 40 WEEKS GESTATION OF Status: Acute Current Visit: Yes (2) Normal labor SNOMED Code(s): 61132815 Code(s): O80 - ENCOUNTER FOR FULL-TERM UNCOMPLICATED DELIVERY; Z37.9 - OUTCOME OF DELIVERY, UNSPECIFIED Status: Acute Current Visit: Yes (3) Rh negative state in antepartum period SNOMED Code(s): 515015837, 010692125 Code(s): O09.899 - SUPERVISION OF OTHER HIGH RISK PREGNANCIES, UNSP TRIMESTER Status: Acute Current Visit: Yes (4) Vaginal delivery SNOMED Code(s): 539698752 Code(s): O80 - ENCOUNTER FOR FULL-TERM UNCOMPLICATED DELIVERY Status: Acute Current Visit: Yes - Problem List Review Problem List Initiated/Reviewed/Updated: Yes - My Orders Last 24 Hours: My Active Orders 01/26/17 23:36 Heat Therapy [OM.PC] PRN - Assessment Assessment:: 21 y/o G1 now P1001 PPD#2 from at 40 5/7 wks - Plan Plan:: * Routine cares * Encourage breast feeding * Rh negative, Baby Rh positive. S/p Rhogam * Discharge home today
--- NOTE | 2017-01-27 07:16 | PCM.DCSUM1 ---
Discharge Summary - Discharge Data Discharge Date: 01/27/17 Discharge Disposition: Home, Self-Care 01 Condition: Good - Discharge Diagnosis/Problem(s) (1) 40 weeks gestation of SNOMED Code(s): 77118880 ICD Code: Z3A.40 - 40 WEEKS GESTATION OF Status: Acute Current Visit: Yes (2) Normal labor SNOMED Code(s): 28178355 ICD Code: O80 - ENCOUNTER FOR FULL-TERM UNCOMPLICATED DELIVERY; Z37.9 - OUTCOME OF DELIVERY, UNSPECIFIED Status: Acute Current Visit: Yes (3) Rh negative state in antepartum period SNOMED Code(s): 747832417, 483766458 ICD Code: O09.899 - SUPERVISION OF OTHER HIGH RISK PREGNANCIES, UNSP TRIMESTER Status: Acute Current Visit: Yes (4) Vaginal delivery SNOMED Code(s): 122623665 ICD Code: O80 - ENCOUNTER FOR FULL-TERM UNCOMPLICATED DELIVERY Status: Acute Current Visit: Yes - Patient Summary/Data Complications: None Consults: None Recommended Follow-up Testing/Procedures: Follow up in 5-6 weeks for check Hospital Course: 21 y/o at 40 5/7 wks who presented in labor. She progressed well to complete dilation and underwent an uncomplicated . See delivery note. she did well and was discharged home on PPD#2 - Patient Instructions Diet: Regular Diet as Tolerated Activity: As Tolerated Activity, Other: Pelvic rest for 6 weeks Driving: May Drive Today Showering/Bathing: May Shower Showering/Bathing, Other: May Bathe Notify Provider of: Fever, Increased Pain, Swelling and Redness, Drainage, Nausea and/or Vomiting - Discharge Plan Home Medications: Home Meds PNV95/Ferrous Fumarate/FA [ Tablet] 1 tab PO DAILY 12/28/16 [History] Docusate Sodium [Colace] 100 mg PO BID PRN cap 01/27/17 [Rx] Ibuprofen [IJD: Ibuprofen] 600 mg PO Q6H PRN tablet 01/27/17 [Rx] Patient Handouts: Smoking Cessation, Tips for Success, [id number], Smoking Hazards, Substance Use Disorder Referrals: Brianne Chanel MD [Physician] - (5-6 weeks for check ) - Discharge Summary/Plan Comment DC Time >30 min.: No - Patient Data Vitals - Most Recent: Last Vital Signs Temp 36.8 C 01/27/17 04:58 Pulse 94 01/27/17 04:58 Resp 16 01/27/17 04:58 BP 124/80 01/27/17 04:58 Pulse Ox 97 01/27/17 04:58 Weight - Most Recent: 80.286 kg I&O - Last 24 hours: Intake & Output 01/26/17 01/27/17 01/27/17 22:59 06:59 14:59 Intake Total 721 Balance 721 Lab Results - Last 24 hrs: Laboratory Results - last 24 hr 01/25/17 01/26/17 Range/Units 14:45 08:30 Urine Opiates Screen Negative (NEGATIVE) Ur Buprenorphine Scrn Negative (NEGATIVE) Ur Oxycodone Screen Negative (NEGATIVE) Urine Methadone Screen Negative (NEGATIVE) Ur Propoxyphene Screen Negative (NEGATIVE) Ur Barbiturates Screen Negative (NEGATIVE) Ur Tricyclics Screen Negative (NEGATIVE) Ur Phencyclidine Scrn Negative (NEGATIVE) Ur Amphetamine Screen Negative (NEGATIVE) U Methamphetamines Scrn Negative (NEGATIVE) U Benzodiazepines Scrn Negative (NEGATIVE) U Cocaine Metab Screen Negative (NEGATIVE) U Marijuana (THC) Screen Negative (NEGATIVE) Blood Type A NEGATIVE Gel Antibody Screen Negative Screen 0 ros/5 flds - neg RhIG Candidate? Yes Rhogam Indicated Yes, baby rh pos H Med Orders - Current: Current Medications Acetaminophen (Tylenol) 650 mg PO Q4H PRN PRN Reason: mild pain or fever Benzocaine/Menthol (Dermoplast Pain Relief [place]) 0 gm TOP ASDIRECTED PRN PRN Reason: Perineal Comfort Measure Last Admin: 01/25/17 23:49 Dose: 1 sprays(dnu) Docusate Sodium (Colace) 100 mg PO BID PRN PRN Reason: Constipation Last Admin: 01/25/17 23:50 Dose: 100 mg Emollient Ointment (Lansinoh Hpa) 0 gm TOP ASDIRECTED PRN PRN Reason: Sore Nipples Last Admin: 01/27/17 02:22 Dose: 1 applic Ibuprofen (Motrin) 600 mg PO Q6H PRN PRN Reason: Mild pain or fever Last Admin: 01/26/17 11:29 Dose: 600 mg Witch Kayy (Tucks) 1 pad TOP ASDIRECTED PRN PRN Reason: Hemorrhoid pain Last Admin: 01/25/17 23:49 Dose: 1 applic Discontinued Medications Bupivacaine HCl (Sensorcaine-Mpf 0.25%) 10 ml .ROUTE .STK-MED ONE Stop: 01/25/17 22:23 Diphenhydramine HCl (Benadryl) 25 mg IVPUSH Q6H PRN PRN Reason: Itching Ephedrine Sulfate (Ephedrine Sulfate) 5 mg IVPUSH ASDIRECTED PRN PRN Reason: HYPOTENTSION Fentanyl (Sublimaze) 100 mcg EPIDUR Q3H PRN PRN Reason: PAIN Last Admin: 01/25/17 05:17 Dose: 100 mcg Fentanyl (Sublimaze) Confirm Administered Dose 100 mcg .ROUTE .STClear Water Outdoor-MED ONE Stop: 01/25/17 05:10 Last Admin: 01/25/17 13:57 Dose: Not Given Fentanyl/Bupivacaine HCl (Fentanyl/Bupivacaine/Ns 2 Mcg-0.125% 100 Ml) 100 ml EPIDUR ASDIRECTED LAZ Last Admin: 01/25/17 05:17 Dose: 100 ml Lactated Ringer's (Ringers, Lactated) 1,000 mls @ 100 mls/hr IV ASDIRECTED LAZ Last Admin: 01/25/17 16:55 Dose: 100 mls/hr Oxytocin/Lactated Ringer's (Pitocin In Lr 10 Units/1,000 Ml) 10 unit in 1,000 mls @ 500 mls/hr IV .CONTINUOUS LAZ Oxytocin/Lactated Ringer's (Pitocin In Lr 10 Units/1,000 Ml) 10 unit in 1,000 mls @ 12 mls/hr IV TITRATE LAZ; 2 MUNITS/MIN PRN Reason: Protocol Last Titration: 01/25/17 22:25 Dose: 250 mls/hr Lidocaine HCl (Xylocaine 1%) 50 ml INJECT ONETIME ONE Stop: 01/25/17 04:41 Last Admin: 01/26/17 09:46 Dose: Not Given Nalbuphine HCl (Nubain) 10 mg IVPUSH Q2H PRN PRN Reason: Pain (moderate 4-6) Ondansetron HCl (Zofran) 4 mg IVPUSH Q4H PRN PRN Reason: Nausea/Vomiting Sodium Chloride (Saline Flush) 10 ml FLUSH ASDIRECTED PRN PRN Reason: Keep Vein Open *Q Meaningful Use (DIS) - VTE *Q VTE Criteria *Q: - Stroke *Q Stroke Criteria *Q: - AMI *Q AMI Criteria *Q:
[2017-01-27] MEDS: Ibuprofen 600 MG Tab PO PRN (11:10)
== END 2017-01-27 11:15 | disposition home or self-care (01) | DRG 775 ==
LOC: JD.OBCHECK 03:58 → JD.OB 04:00 → JD.OBCHECK 04:23 → OBSVTOIN 21:11 → JD.OB 21:11
PROVIDERS: ADMIT Obstetrics & Gynecology; ATTEND Obstetrics & Gynecology
PROC: 10E0XZZ Delivery of Products of Conception, External Approach (ICD-10-PCS; principal; 2017-01-25)
PROC: 0KQM0ZZ Repair Perineum Muscle, Open Approach (ICD-10-PCS; 2017-01-25)
PROC: 10907ZC Drainage of Amniotic Fluid, Therapeutic from Products of Conception, Via Natural or Artificial Opening (ICD-10-PCS; 2017-01-25)
PROC: 00HU33Z Insertion of Infusion Device into Spinal Canal, Percutaneous Approach (ICD-10-PCS; 2017-01-25)
PROC: 3E0R3CZ (ICD-10-PCS; 2017-01-25)
DX: O99.324 Drug use complicating childbirth (principal); O70.1 Second degree perineal laceration during delivery; Z37.0 Single live birth; Z3A.41 41 weeks gestation of pregnancy; Z87.891 Personal history of nicotine dependence; F15.90 Other stimulant use, unspecified, uncomplicated; F14.90 Cocaine use, unspecified, uncomplicated
CPT/HCPCS: 36415; 80306; 85025; 85461; 86850; 86900; 86901; A9270-GY; J2590; J2790; J3010; J7120

== ENCOUNTER 2017-03-26 17:46 | Emergency (ER) | payer MEDICAID ==
[2017-03-26 18:17] VITALS: BP 106/81
--- NOTE | 2017-03-26 18:26 | EDM.PDOC ---
ED HPI GENERAL MEDICAL PROBLEM - General Chief Complaint: ENT Problem Stated Complaint: ABSCESS IN CHEEK Time Seen by Provider: 03/26/17 18:25 - History of Present Illness INITIAL COMMENTS - FREE TEXT/NARRATIVE: 21-year-old female presents emergency room with dental pain and right facial swelling. The significant worse over the last several days she had a tooth repair done and the next step was a root canal. This is involving the same tooth right lower. Patient is noticed increased swelling in the last couple of days. Now she is getting a little bit of associated swelling on the outside of her jaw. Patient is not having any fevers or chills. 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: Psychiatric History: Reports: Addiction, Other (See Below) Other Psychiatric History: Hx of drug use, TCH, cocaine, methamphetamines Other Dermatologic History: skin rash/scabbed area Social & Family History - Family History Family Medical History: Noncontributory - Tobacco Use Smoking Status *Q: Current Every Day Smoker Years of Tobacco use: 5 Packs/Tins Daily: 0.3 Used Tobacco, but Quit: Yes Month Tobacco Last Used: august Second Hand Smoke Exposure: Yes - Caffeine Use Caffeine Use: Reports: Coffee, Energy Drinks, Soda - Alcohol Use Days Per Week of Alcohol Use: 0 - Recreational Drug Use Recreational Drug Use: No Drug Use in Last 12 Months: Yes Recreational Drug Type: Reports: Marijuana/Hashish Other Recreational Drug Type: see pre Recreational Drug Use Frequency: Socially ED ROS ENT - Review of Systems Review Of Systems: See Below Constitutional: Reports: No Symptoms HEENT: Reports: Dental Pain. Denies: Ear Pain, Rhinitis, Sinus Problem Respiratory: Reports: No Symptoms Cardiovascular: Reports: No Symptoms GI/Abdominal: Reports: No Symptoms ED EXAM, ENT - Physical Exam Exam: See Below Exam Limited By: No Limitations General Appearance: Alert, No Apparent Distress Ears: Normal External Exam, Normal Canal, Hearing Grossly Normal Nose: Normal Inspection, Normal Mucousa Mouth/Throat: Normal Oropharynx, Other (She has some swelling and redness in her gumline on her right lower molar I believe this to be in the 31 position. To his is exquisitely tender with palpation) Head: Atraumatic, Other (Mild right-sided facial swelling) Neck: Normal Inspection, Supple, Non-Tender, Full Range of Motion. No: Lymphadenopathy (L), Lymphadenopathy (R) Respiratory/Chest: No Respiratory Distress, Lungs Clear, Normal Breath Sounds Cardiovascular: Regular Rate, Rhythm, No Murmur Course - Vital Signs Last Recorded V/S: Last Vital Signs Temp 36.8 C 03/26/17 18:14 Pulse 80 03/26/17 18:14 Resp 20 03/26/17 18:14 BP 106/81 03/26/17 18:14 Pulse Ox 98 03/26/17 18:14 Departure - Departure Time of Disposition: 18:51 Disposition: Home, Self-Care 01 Clinical Impression: Pain, dental - Discharge Information Referrals: PCP,None [Primary Care Provider] - Forms: ED Department Discharge Additional Instructions: Return to the emergency room with any questions problems worsening symptoms. Follow-up with your dentist as soon as you can. You been somewhat started on several medications for his was clindamycin 300 mg one every 8 hours. Start this this evening. Take this for 10 days. You have also been given hydrocodone 5/325 No. 10 from the machine in the waiting room take one or 2 every 6 hours as needed for pain mostly in the evening. Ibuprofen for pain during the day. Take the ibuprofen with food.
== END 2017-03-26 19:10 | disposition home or self-care (01) ==
LOC: JD.ED 17:46
DX: K08.89 Other specified disorders of teeth and supporting structures (principal); F17.210 Nicotine dependence, cigarettes, uncomplicated
CPT/HCPCS: 99283

== ENCOUNTER 2019-12-22 00:13 | Emergency (ER) | payer BC, OTHER ==
[2019-12-22 00:29] VITALS: BP 108/68; PULSE 98
[2019-12-22] MEDS ORDERED: Ibuprofen 600 MG Tab PO ONE (01:15)
--- NOTE | 2019-12-22 01:15 | EDM.PDOC ---
ED HPI GENERAL MEDICAL PROBLEM - General Chief Complaint: Lower Extremity Injury/Pain Stated Complaint: RIGHT LEG PAIN Time Seen by Provider: 12/22/19 01:04 Source of Information: Reports: Patient, Significant Other (Boyfriend) History Limitations: Reports: No Limitations - History of Present Illness INITIAL COMMENTS - FREE TEXT/NARRATIVE: Ms. Randle is a very pleasant 24-year-old woman who now presents the ED stating that she rolled her right ankle when she stepped off a curb outside of a bar around 23:00 tonight. She acknowledges that she was drinking. She is complaining of pain to the dorsal aspect of her right foot. She also fell and skinned her left knee, however, she is not concerned about that. She denies any other injuries. Here in the ED, the patient is found to be hemodynamically stable, afebrile, saturating 96% on room air. Other than tonight's injuries, the patient denies recent fever, chills, sore throat, ear pain, nasal or sinus congestion, cough, dyspnea, chest pain, palpitations, nausea, vomiting, constipation, diarrhea, abdominal pain, urinary symptoms, recent weight gain or weight loss, recent bloody bowel movements or black bowel movements, recent joint aches, headaches, or rashes. The patient's PCP is OSWALDO Granger. Right Ankle Pain Score (Numeric/FACES): 2 - Related Data Allergies Allergy/AdvReac Type Severity Reaction Status Date / Time No Known Allergies Allergy Verified 12/22/19 00:30 Home Meds: Home Meds . 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) Social & Family History - Family History Family Medical History: Noncontributory - Tobacco Use Smoking Status *Q: Former Smoker Tobacco Use Within Last Twelve Months: Vaping (nicotine) Years of Tobacco use: 6 Packs/Tins Daily: 1 Month/Year Tobacco Last Used: Quit 2017 - Caffeine Use Caffeine Use: Reports: Coffee, Energy Drinks, Soda - Alcohol Use Alcohol Use History: Yes Alcohol Use Frequency: Socially - Recreational Drug Use Recreational Drug Use: Yes Drug Use in Last 12 Months: Yes Recreational Drug Type: Reports: Cocaine, Marijuana/Hashish, Methamphetamine - Living Situation & Occupation Living situation: Reports: Single, with Significant Other (Boyfriend), with Family (1 of her children, 1 of her boyfriend's) Occupation: Employed ([employer]) Review of Systems - Review of Systems Review Of Systems: Comprehensive ROS is negative, except as noted in HPI. ED EXAM, GENERAL - Physical Exam Exam: See Below Exam Limited By: No Limitations General Appearance: Alert, WD/WN, No Apparent Distress Extremities: Other (No visible abnormality to the right foot, such as swelling, erythema, ecchymosis, or abrasion, however, the patient reports tenderness to the dorsal aspect of the foot, made worse with forced plantarflexion. No ankle pain or tenderness, even with PROM. Neurovascular status of the right lower extremity is intact. There is an abrasion to the anterior aspect of the patient's right knee, however, the patient is not requesting evaluation, stating "it's fine".) Course - Vital Signs Last Recorded V/S: Last Vital Signs Temp 37.0 C 12/22/19 00:24 Pulse 98 12/22/19 00:24 Resp 20 12/22/19 00:24 BP 108/68 12/22/19 00:24 Pulse Ox 96 12/22/19 00:24 - Orders/Labs/Meds Meds: Medications Discontinued Medications Generic Name Dose Route Start Last Admin Trade Name Dora PRN Reason Stop Dose Admin Ibuprofen 600 mg 12/22/19 01:15 12/22/19 01:19 Motrin PO 12/22/19 01:16 600 mg ONETIME ONE Administration - Re-Assessments/Exams Free Text/Narrative Re-Assessment/Exam: 12/22/19 01:14 As above, the patient fell off a curve outside of a bar this evening, injuring the dorsal aspect of her right foot, and abrading her anterior left knee. Her physical exam is grossly benign, finding no visible abnormalities to the right foot, nevertheless, I ordered x-rays of the right foot to evaluate. In the meantime, I applied an ice pack and will order ibuprofen. 12/22/19 01:55 2-view radiographs of the right foot appear to be grossly normal, with no fractures or dislocations identified. Formal read per the Radiologist pending. 12/22/19 01:58 X-ray results discussed with the patient and her boyfriend. I suggested to the patient that we apply a stirrup splint, which will help prevent plantarflexion, which would stretch the dorsal tendons, and cause discomfort. The patient will still be able to walk. She can wear this for a few days, until her foot is feeling better. Departure - Departure Time of Disposition: 01:59 Disposition: Home, Self-Care 01 Condition: Good Clinical Impression: Right foot strain - Discharge Information *PRESCRIPTION DRUG MONITORING PROGRAM REVIEWED*: Not Applicable *COPY OF PRESCRIPTION DRUG MONITORING REPORT IN PATIENT VIKAS: Not Applicable Instructions: Foot Sprain Referrals: Gayathri Alcantar PA-C [Primary Care Provider] - Forms: ED Department Discharge Additional Instructions: You were seen in the emergency room after falling off of a curb, injuring the backside of your right foot. Work-up in the ER included x-rays of your right foot, which returned normal. No broken bones or dislocations were found. Based on your history, physical exam, and ER x-rays, you have most likely strained the backside of your right foot. You have been placed into a sterile splint. This will prevent your foot from flexing downward, which would strain the tendons on the back of your foot, causing pain. Apply the splint each morning, and remove it at bedtime. We recommend that you wear it for several days, until your foot is feeling better. We recommend that you ice and elevate your right foot for the next 2 days, to help minimize swelling. We recommend that you take [id number] ibuprofen, 3 tablets (600 mg) up to every 8 hours, with food, as needed for discomfort. If any other problems, please do not hesitate to return to the ER. Sepsis Event Note (ED) - Evaluation Sepsis Screening Result: No Definite Risk
--- NOTE | 2019-12-23 05:33 | CR ---
Right foot: 2 views of the right foot were obtained. Comparison: No prior foot exam is available. No acute fracture or other bony abnormality is appreciated. Impression: 1. No abnormality is identified on 2 view right foot exam. Diagnostic code #1 This report was dictated in MDT
== END 2019-12-22 02:14 | disposition home or self-care (01) ==
LOC: JD.ED 00:13
DX: S96.911A Strain of unspecified muscle and tendon at ankle and foot level, right foot, initial encounter (principal); Z87.891 Personal history of nicotine dependence; W22.8XXA Striking against or struck by other objects, initial encounter
CPT/HCPCS: 73620; 99283; A9270

== ENCOUNTER 2021-11-03 20:57 | Emergency (ER) | payer SELFPAY ==
[2021-11-03 21:04] VITALS: BP 137/106; PULSE 124
[2021-11-03] MEDS ORDERED: Ondansetron 4 MG/2 ML SDV IVPUSH ONE (21:11)
[2021-11-03] MEDS ORDERED: Sodium Chloride 0.9% 10 ML Syringe FLUSH PRN (21:11)
[2021-11-03] MEDS ORDERED: LORazepam 2 MG/ML SDV IVPUSH ONE ×2 (21:12→21:48)
[2021-11-03] MEDS ORDERED: Sodium Chloride 0.9% 1,000 ML IV SCH (21:15)
[2021-11-03 21:54] LABS: ESTIMATED GFR > 60 mL/min (>60)
== END 2021-11-03 23:29 | disposition home or self-care (01) ==
LOC: JD.ED 20:57
DX: F10.920 Alcohol use, unspecified with intoxication, uncomplicated (principal); R74.01 Elevation of levels of liver transaminase levels; F17.210 Nicotine dependence, cigarettes, uncomplicated; Z79.899 Other long term (current) drug therapy
CPT/HCPCS: 36415; 70450; 80053; 80307; 83690; 83735; 85025; 96361; 96374; 96375; 99284; J2060; J2405; J3490; J7030

== ENCOUNTER 2021-12-17 07:04 | Emergency (ER) | payer SELFPAY ==
[2021-12-17] MEDS ORDERED: Ondansetron 4 MG/2 ML SDV IVPUSH ONE (07:38)
[2021-12-17] MEDS ORDERED: Sodium Chloride 0.9% 1,000 ML IV STA (07:38)
[2021-12-17] MEDS ORDERED: HYDROmorphone 0.5 MG/0.5 ML Syringe IVPUSH ONE (07:40)
[2021-12-17] MEDS ORDERED: Iopamidol 612 MG/ML 50 ML SDV IVPUSH ONE (07:42)
[2021-12-17] MEDS ORDERED: Iopamidol 612 MG/ML 100 ML Bottle IVPUSH ONE (07:42)
[2021-12-17] MEDS: Sodium Chloride 0.9% 10 ML Syringe FLUSH PRN ×2 (08:03→09:15)
[2021-12-17 11:01] VITALS: BP 121/80; PULSE 79
== END 2021-12-17 11:01 | disposition home or self-care (01) ==
LOC: JD.ED 07:04
DX: K52.9 Noninfective gastroenteritis and colitis, unspecified (principal); Z79.899 Other long term (current) drug therapy
CPT/HCPCS: 36415; 74177; 80053; 81001; 83690; 84703; 85025; 96361; 96374; 96375; 99284; J1170; J2405; J3490; J7030; Q9967

== ENCOUNTER 2022-01-26 12:48 | Emergency (ER) | payer SELFPAY ==
[2022-01-26 13:01] VITALS: BP 138/100; PULSE 100
[2022-01-26] MEDS ORDERED: LORazepam 1 MG Tab PO ONE (13:30)
[2022-01-26 14:17] LABS: ESTIMATED GFR 90 mL/min (>60)
== END 2022-01-26 16:30 | disposition home or self-care (01) ==
LOC: JD.ED 12:48
DX: F41.9 Anxiety disorder, unspecified (principal); F10.20 Alcohol dependence, uncomplicated; Y90.0 Blood alcohol level of less than 20 mg/100 ml
CPT/HCPCS: 36415; 80053; 80307; 84484; 85025; 86140; 93005; 99284; A9270; 93010; 99283

== ENCOUNTER 2022-03-28 11:10 | Emergency (ER) | payer SELFPAY ==
[2022-03-28] MEDS ORDERED: Sodium Chloride 0.9% 10 ML Syringe FLUSH PRN (11:52)
[2022-03-28] MEDS ORDERED: Sodium Chloride 0.9% 1,000 ML IV STA (12:41)
[2022-03-28] MEDS ORDERED: LORazepam 2 MG/ML SDV IVPUSH ONE (14:47)
[2022-03-28 17:01] VITALS: BP 128/85; PULSE 92
== END 2022-03-28 16:45 | disposition other institution (70) ==
LOC: JD.ED 11:10
DX: F10.10 Alcohol abuse, uncomplicated (principal); F17.210 Nicotine dependence, cigarettes, uncomplicated; Z79.899 Other long term (current) drug therapy; Z86.16 Personal history of COVID-19
CPT/HCPCS: 36415; 80053; 80143; 80179; 80306; 80307; 81025; 84443; 85007; 85027; 93005; 96361; 96374; 99285; J2060; J3490; J7030

== ENCOUNTER 2022-04-23 13:37 | Emergency (ER) | payer SELFPAY ==
[2022-04-23 13:50] VITALS: BP 132/99; PULSE 92
[2022-04-23] MEDS ORDERED: Sodium Chloride 0.9% 10 ML Syringe FLUSH PRN (13:51)
[2022-04-23] MEDS ORDERED: Sodium Chloride 0.9% 1,000 ML IV STA (13:51)
[2022-04-23 14:49] LABS: ESTIMATED GFR 90 mL/min (>60)
== END 2022-04-23 16:04 | disposition home or self-care (01) ==
LOC: JD.ED 13:37
DX: N39.0 Urinary tract infection, site not specified (principal); F10.930 Alcohol use, unspecified with withdrawal, uncomplicated
CPT/HCPCS: 36415; 80053; 81001; 85025; 86140; 96360; 99284; J3490; J7030

== ENCOUNTER 2023-05-15 22:10 | Emergency (ER) | payer BC ==
[2023-05-15] MEDS ORDERED: Sodium Chloride 0.9% 10 ML Syringe FLUSH PRN (22:26)
[2023-05-15 22:32] LABS: BASOPHILS ABSOLUTE AUTO 0.1 K/mm3 (0.0-0.2); BASOPHILS PERCENT AUTO 0.9 % (0.0-1.0); EOSINOPHILS ABSOLUTE AUTO 0.3 K/mm3 (0.0-0.4); EOSINOPHILS PERCENT AUTO 3.2 % (0.0-6.0); HEMATOCRIT 44.6 % (37.0-47.0); HEMOGLOBIN 16.1 gm/dl (12.0-16.0); IMMATURE GRAN ABSOLUTE AUTO 0.02 K/mm3 (0.00-0.05); IMMATURE GRAN PERCENT AUTO 0.2 % (0.0-0.4); LYMPHOCYTES ABSOLUTE AUTO 2.1 K/mm3 (1.0-4.8); LYMPHOCYTES PERCENT AUTO 21.7 % (24.0-44.0); MEAN CORPUSCULAR HEMOGLOBIN 36.8 pg (28.0-32.0); MEAN CORPUSCULAR HGB CONC 36.1 g/dl (32.0-36.0); MEAN CORPUSCULAR VOLUME 101.8 fl (83.0-99.0); MEAN PLATELET VOLUME 9.2 fl (9.4-12.3); MONOCYTES ABSOLUTE AUTO 1.1 K/mm3 (0.0-0.8); MONOCYTES PERCENT AUTO 11.2 % (0.0-8.0); NEUTROPHILS PERCENT AUTO 62.8 % (41.0-71.0); PLATELET COUNT,PLT 327 K/mm3 (150-400); RED BLOOD CELL COUNT 4.38 M/mm3 (4.10-5.30); WHITE BLOOD CELL COUNT,WBC 9.56 K/mm3 (3.9-11.3)
[2023-05-15] MEDS ORDERED: Ondansetron 4 MG/2 ML SDV IVPUSH ONE (22:38)
[2023-05-15] MEDS ORDERED: HYDROmorphone 0.5 MG/0.5 ML Syringe IVPUSH ONE (22:38)
[2023-05-15] MEDS ORDERED: Sodium Chloride 0.9% 1,000 ML IV SCH (22:45)
[2023-05-15 22:58] LABS: A/G RATIO 0.9 (1-2); ALANINE AMINOTRANSFERASE,ALT 56 U/L (14-59); ALBUMIN 4.1 g/dl (3.4-5.0); ALKALINE PHOSPHATASE 77 U/L (46-116); ANION GAP 16.8 (5-15); BLOOD UREA NITROGEN,BUN 7 mg/dL (7-18); CALCIUM 9.7 mg/dL (8.5-10.1); CARBON DIOXIDE,CO2 22 mEq/L (21-32); CHLORIDE,CL 98 mEq/L (98-107); CREATININE 0.7 mg/dL (0.55-1.02); ESTIMATED GFR 121 mL/min (>60); GLUCOSE RANDOM 113 mg/dL (70-99); PROTEIN TOTAL,TP 8.6 g/dl (6.4-8.2); SODIUM,NA 133 mEq/L (136-145)
[2023-05-15 23:09] LABS: ASPARTATE AMNIOTRANSFERASE,AST 57 U/L (15-37); C-REACTIVE PROTEIN < 0.2 mg/dL (<1.0); HCG QUANTITATIVE < 1.0 mIU/mL; POTASSIUM,K 3.8 mEq/L (3.5-5.1)
[2023-05-15] MEDS ORDERED: Alum Hydrox/Mag Hydrox/Simeth 30 ML, Lidocaine 2% 15 ML PO ONE ×2 (23:54)
[2023-05-16] MEDS ORDERED: Pantoprazole 40 MG Vial IVPUSH ONE (00:39)
[2023-05-16 00:50] LABS: CORONAVIRUS COVID-19 NAA NEGATIVE (NEGATIVE); INFLUENZA A NAA NEGATIVE (NEGATIVE); RESPIRATORY SYNCYTIAL VIR NAA NEGATIVE (NEGATIVE)
[2023-05-16 01:17] LABS: APPEARANCE,URINE CLEAR (Clear); BILIRUBIN,URINE NEGATIVE (Negative); COLOR,URINE YELLOW (Yellow); GLUCOSE,URINE NEGATIVE (Negative); KETONES,URINE 2+ (Negative); LEUKOCYTE ESTERASE,URINE NEGATIVE (Negative); NITRITE,URINE NEGATIVE (Negative); OCCULT BLOOD,URINE TRACE-LYSED (Negative); PH,URINE 6.5 (5.0-8.0); PROTEIN,URINE NEGATIVE (Negative); UROBILINOGEN,URINE 0.2 (0.2-1.0)
[2023-05-16 01:23] LABS: BARBITURATE SCREEN,URINE NEGATIVE (CUTOFF=200); BENZODIAZEPINES SCREEN,URINE NEGATIVE (CUTOFF=150); BUPRENORPHINE SCREEN,URINE NEGATIVE (CUTOFF=10); METHADONE SCREEN, URINE NEGATIVE (CUTOFF=200); METHAMPHETAMINES SCREEN, URINE NEGATIVE (CUTOFF=500); OXYCODONE SCREEN,URINE NEGATIVE (CUT0FF=100); THC SCREEN,URINE 20 NG/ML NEGATIVE (CUTOFF=50)
[2023-05-16 01:45] LABS: AMPHETAMINES SCREEN, URINE PRESUMPTIVE POSITIVE (CUTOFF=500)
[2023-05-16 01:47] VITALS: BP 130/85; PULSE 80
[2023-05-16 01:51] LABS: BACTERIA,URINE MODERATE /hpf (FEW); MUCUS,URINE NOT SEEN /hpf (FEW); RBC,URINE NOT SEEN /hpf (0-5); WBC,URINE 0-5 /hpf (0-5)
== END 2023-05-16 02:05 | disposition home or self-care (01) ==
LOC: JD.ED 22:10
DX: K29.00 Acute gastritis without bleeding (principal); K21.9 Gastro-esophageal reflux disease without esophagitis; Z86.16 Personal history of COVID-19; Z79.899 Other long term (current) drug therapy
CPT/HCPCS: 0241U; 36415; 76705; 80053; 80306; 80307; 81001; 83690; 84702; 85025; 86140; 96361; 96374; 96375; 99284; A9270; C9113; J1170; J2405; J7030

== ENCOUNTER 2023-09-10 20:09 | Emergency (ER) | payer BC ==
[2023-09-10] MEDS: predniSONE 20 MG Tab PO ONE (20:43)
[2023-09-10] MEDS: Cetirizine 10 MG Tab PO ONE (20:43)
[2023-09-10 20:58] VITALS: BP 132/78; PULSE 98
== END 2023-09-10 20:58 | disposition home or self-care (01) ==
LOC: JD.ED 20:09
DX: L29.9 Pruritus, unspecified (principal); K21.9 Gastro-esophageal reflux disease without esophagitis; F17.210 Nicotine dependence, cigarettes, uncomplicated; Z79.899 Other long term (current) drug therapy; Z86.16 Personal history of COVID-19
CPT/HCPCS: 99283; A9270; J7512

== ENCOUNTER 2023-12-31 19:53 | Emergency (ER) | payer BC ==
[2023-12-31 20:29] LABS: BASOPHILS ABSOLUTE AUTO 0.1 K/mm3 (0.0-0.2); EOSINOPHILS ABSOLUTE AUTO 0.1 K/mm3 (0.0-0.4); HEMOGLOBIN 15.5 gm/dl (12.0-16.0); IMMATURE GRAN ABSOLUTE AUTO 0.01 K/mm3 (0.00-0.05); IMMATURE GRAN PERCENT AUTO 0.2 % (0.0-0.4); LYMPHOCYTES ABSOLUTE AUTO 2.3 K/mm3 (1.0-4.8); LYMPHOCYTES PERCENT AUTO 39.3 % (24.0-44.0); MEAN CORPUSCULAR HEMOGLOBIN 37.2 pg (28.0-32.0); MEAN CORPUSCULAR VOLUME 103.1 fl (83.0-99.0); MEAN PLATELET VOLUME 9.1 fl (9.4-12.3); MONOCYTES ABSOLUTE AUTO 0.6 K/mm3 (0.0-0.8); MONOCYTES PERCENT AUTO 10.6 % (0.0-8.0); NEUTROPHILS ABSOLUTE AUTO 2.9 K/mm3 (1.8-7.7); NEUTROPHILS PERCENT AUTO 47.9 % (41.0-71.0); PLATELET COUNT,PLT 295 K/mm3 (150-400); RED BLOOD CELL COUNT 4.17 M/mm3 (4.10-5.30); WHITE BLOOD CELL COUNT,WBC 5.96 K/mm3 (3.9-11.3)
[2023-12-31] MEDS: Ondansetron 4 MG Tab.DIS PO SCH (20:56)
[2023-12-31 20:59] LABS: A/G RATIO 1.2 (1-2); ALBUMIN 3.9 g/dl (3.4-5.0); ANION GAP 17.7 (5-15); BILIRUBIN TOTAL 0.3 mg/dL (0.2-1.0); BUN/CREATININE RATIO 7.8 (14-18); CALCIUM 8.8 mg/dL (8.5-10.1); CREATININE 0.9 mg/dL (0.55-1.02); EST CRCL DRUG DOSING (CG) 80.36 mL/min; ETHANOL BLOOD MEDICAL 0.29 gm% (0.00); POTASSIUM,K 3.7 mEq/L (3.5-5.1); PROTEIN TOTAL,TP 7.3 g/dl (6.4-8.2); TSH 3.246 uIU/mL (0.358-3.74)
[2023-12-31 21:08] LABS: APPEARANCE,URINE SLT CLOUDY (Clear); BILIRUBIN,URINE NEGATIVE (Negative); COLOR,URINE YELLOW (Yellow); GLUCOSE,URINE NEGATIVE (Negative); KETONES,URINE TRACE (Negative); LEUKOCYTE ESTERASE,URINE TRACE (Negative); NITRITE,URINE NEGATIVE (Negative); OCCULT BLOOD,URINE TRACE-LYSED (Negative); PH,URINE 6.5 (5.0-8.0); PROTEIN,URINE 1+ (Negative); UROBILINOGEN,URINE 0.2 (0.2-1.0)
[2023-12-31] MEDS: Thiamine 100 MG Tab PO ONE (21:17)
[2023-12-31 21:19] LABS: BARBITURATE SCREEN,URINE NEGATIVE (CUTOFF=200); BENZODIAZEPINES SCREEN,URINE NEGATIVE (CUTOFF=150); BUPRENORPHINE SCREEN,URINE NEGATIVE (CUTOFF=10); METHADONE SCREEN, URINE NEGATIVE (CUTOFF=200); METHAMPHETAMINES SCREEN, URINE NEGATIVE (CUTOFF=500); OXYCODONE SCREEN,URINE NEGATIVE (CUT0FF=100); THC SCREEN,URINE 20 NG/ML NEGATIVE (CUTOFF=50)
[2023-12-31 21:25] LABS: AMPHETAMINES SCREEN, URINE NEGATIVE (CUTOFF=500)
[2023-12-31 21:40] LABS: BACTERIA,URINE FEW /hpf (FEW)
[2023-12-31 21:41] LABS: MUCUS,URINE NOT SEEN /hpf (FEW)
[2024-01-01 06:47] VITALS: BP 128/98; PULSE 94
== END 2024-01-01 06:48 | disposition home or self-care (01) ==
LOC: JD.ED 19:53
DX: F10.220 Alcohol dependence with intoxication, uncomplicated (principal); F17.210 Nicotine dependence, cigarettes, uncomplicated; Z86.16 Personal history of COVID-19; Z79.899 Other long term (current) drug therapy; Y90.0 Blood alcohol level of less than 20 mg/100 ml
CPT/HCPCS: 36415; 80053; 80143; 80179; 80306; 80307; 81001; 84443; 84703; 85025; 87086; 99284; A9270; 99283

== ENCOUNTER 2024-01-01 11:53 | Emergency (ER) | payer BC ==
[2024-01-01 12:21] VITALS: PULSE 104
[2024-01-01 13:54] LABS: HEMATOCRIT 40.4 % (37.0-47.0); HEMOGLOBIN 14.6 gm/dl (12.0-16.0); MEAN CORPUSCULAR HEMOGLOBIN 37.1 pg (28.0-32.0); MEAN CORPUSCULAR HGB CONC 36.1 g/dl (32.0-36.0); MEAN CORPUSCULAR VOLUME 102.5 fl (83.0-99.0); MEAN PLATELET VOLUME 9.6 fl (9.4-12.3); PLATELET COUNT,PLT 248 K/mm3 (150-400); RED BLOOD CELL COUNT 3.94 M/mm3 (4.10-5.30); WHITE BLOOD CELL COUNT,WBC 8.39 K/mm3 (3.9-11.3)
[2024-01-01] MEDS: Sodium Chloride 0.9% 1,000 ML IV STA (13:57)
[2024-01-01] MEDS: LORazepam 1 MG Tab PO ONE (13:57)
[2024-01-01] MEDS: Ondansetron 4 MG/2 ML SDV IVPUSH ONE (13:57)
[2024-01-01 14:30] LABS: A/G RATIO 1.3 (1-2); ALBUMIN 4.2 g/dl (3.4-5.0); ANION GAP 15.8 (5-15); BILIRUBIN TOTAL 1.4 mg/dL (0.2-1.0); CALCIUM 9.3 mg/dL (8.5-10.1); CREATININE 0.6 mg/dL (0.55-1.02); EST CRCL DRUG DOSING (CG) 120.54 mL/min; POTASSIUM,K 3.8 mEq/L (3.5-5.1); PROTEIN TOTAL,TP 7.5 g/dl (6.4-8.2); TSH 1.831 uIU/mL (0.358-3.74)
[2024-01-01] MEDS: Metoclopramide 10 MG/2 ML SDV IVPUSH ONE (15:00)
[2024-01-01 16:07] LABS: BARBITURATE SCREEN,URINE NEGATIVE (CUTOFF=200); BENZODIAZEPINES SCREEN,URINE NEGATIVE (CUTOFF=150); BUPRENORPHINE SCREEN,URINE NEGATIVE (CUTOFF=10); METHADONE SCREEN, URINE NEGATIVE (CUTOFF=200); METHAMPHETAMINES SCREEN, URINE NEGATIVE (CUTOFF=500); OXYCODONE SCREEN,URINE NEGATIVE (CUT0FF=100); THC SCREEN,URINE 20 NG/ML NEGATIVE (CUTOFF=50)
[2024-01-01 16:07] LABS: BAND PERCENT MAN 0 % (0-10); BASOPHILS PERCENT MAN 1 (0.1-1.2); EOSINOPHILS PERCENT MAN 0 % (0.7-5.8); LYMPHOCYTES % ATYPICAL MANUAL 0 %; LYMPHOCYTES PERCENT MAN 21 % (20-40); MONOCYTES PERCENT MAN 7 % (2-10)
[2024-01-01 16:09] LABS: PLATELET COUNT ESTIMATE ADEQUATE; TOXIC GRANULATION 1+ SLIGHT
[2024-01-01 16:11] LABS: AMPHETAMINES SCREEN, URINE NEGATIVE (CUTOFF=500)
[2024-01-01] MEDS: chlordiazePOXIDE 25 MG Cap PO ONE (17:29)
[2024-01-01 17:38] VITALS: BP 120/78
== END 2024-01-01 17:32 | disposition home or self-care (01) ==
LOC: JD.ED 11:53
DX: F10.930 Alcohol use, unspecified with withdrawal, uncomplicated (principal); F17.210 Nicotine dependence, cigarettes, uncomplicated; Z86.16 Personal history of COVID-19; Z79.899 Other long term (current) drug therapy
CPT/HCPCS: 36415; 80053; 80143; 80179; 80306; 80307; 81025; 84443; 85007; 85027; 93005; 96361; 96374; 96375; 99285; A9270; J2405; J2765; J7030; 93010; 99284

== ENCOUNTER 2024-07-19 18:48 | Inpatient (IN) | payer BC ==
[2024-07-19] MEDS ORDERED: Sodium Chloride 0.9% 10 ML Syringe FLUSH PRN (19:15)
[2024-07-19 19:41] LABS: BASOPHILS ABSOLUTE AUTO 0.1 K/mm3 (0.0-0.2); BASOPHILS PERCENT AUTO 0.7 % (0.0-1.0); EOSINOPHILS ABSOLUTE AUTO 0.1 K/mm3 (0.0-0.4); EOSINOPHILS PERCENT AUTO 0.4 % (0.0-6.0); HEMATOCRIT 47.4 % (37.0-47.0); IMMATURE GRAN ABSOLUTE AUTO 0.04 K/mm3 (0.00-0.05); IMMATURE GRAN PERCENT AUTO 0.3 % (0.0-0.4); LYMPHOCYTES ABSOLUTE AUTO 2.9 K/mm3 (1.0-4.8); LYMPHOCYTES PERCENT AUTO 20.9 % (24.0-44.0); MEAN CORPUSCULAR HEMOGLOBIN 37.5 pg (28.0-32.0); MEAN CORPUSCULAR HGB CONC 35.9 g/dl (32.0-36.0); MEAN CORPUSCULAR VOLUME 104.6 fl (83.0-99.0); MONOCYTES ABSOLUTE AUTO 0.9 K/mm3 (0.0-0.8); MONOCYTES PERCENT AUTO 6.7 % (0.0-8.0); NEUTROPHILS ABSOLUTE AUTO 9.8 K/mm3 (1.8-7.7); PLATELET COUNT,PLT 369 K/mm3 (150-400); RED BLOOD CELL COUNT 4.53 M/mm3 (4.10-5.30); WHITE BLOOD CELL COUNT,WBC 13.78 K/mm3 (3.9-11.3)
[2024-07-19] MEDS: Sodium Chloride 0.9% 1,000 ML IV ONE ×3 (19:46→23:01)
[2024-07-19 20:01] LABS: A/G RATIO 1.1 (1-2); ALANINE AMINOTRANSFERASE,ALT 61 U/L (14-59); ALBUMIN 4.2 g/dl (3.4-5.0); ALKALINE PHOSPHATASE 63 U/L (46-116); ANION GAP 26.5 (5-15); ASPARTATE AMNIOTRANSFERASE,AST 80 U/L (15-37); BILIRUBIN TOTAL 0.2 mg/dL (0.2-1.0); BLOOD UREA NITROGEN,BUN 8 mg/dL (7-18); BUN/CREATININE RATIO 8.9 (14-18); CARBON DIOXIDE,CO2 14 mEq/L (21-32); CHLORIDE,CL 104 mEq/L (98-107); CREATINE KINASE,CK 77 U/L (26-192); CREATININE 0.9 mg/dL (0.55-1.02); ESTIMATED GFR 89 mL/min (>60); GLUCOSE RANDOM 104 mg/dL (70-99); POTASSIUM,K 3.5 mEq/L (3.5-5.1); PROTEIN TOTAL,TP 8.2 g/dl (6.4-8.2); SODIUM,NA 141 mEq/L (136-145)
[2024-07-19 20:27] LABS: HCG QUALITATIVE,SERUM NEGATIVE (NEGATIVE)
[2024-07-19] MEDS: LORazepam 2 MG/ML SDV IVPUSH ONE (21:14)
[2024-07-19 21:15] LABS: APPEARANCE,URINE CLEAR (Clear); BILIRUBIN,URINE NEGATIVE (Negative); COLOR,URINE LIGHT YELLOW (Yellow); GLUCOSE,URINE NEGATIVE (Negative); KETONES,URINE NEGATIVE (Negative); LEUKOCYTE ESTERASE,URINE NEGATIVE (Negative); NITRITE,URINE NEGATIVE (Negative); OCCULT BLOOD,URINE 1+ (Negative); PROTEIN,URINE 1+ (Negative); UROBILINOGEN,URINE 0.2 (0.2-1.0)
[2024-07-19 21:29] LABS: WBC,URINE 0-5 /hpf (0-5)
[2024-07-19 21:30] LABS: BACTERIA,URINE FEW /hpf (FEW); MUCUS,URINE FEW /hpf (FEW)
[2024-07-19 21:50] LABS: CORONAVIRUS COVID-19 NAA NEGATIVE (NEGATIVE); INFLUENZA A NAA NEGATIVE (NEGATIVE); RESPIRATORY SYNCYTIAL VIR NAA NEGATIVE (NEGATIVE)
[2024-07-20] MEDS: cefTRIAXone 1 GM Vial IVPUSH ONE (00:20)
[2024-07-20] MEDS: LORazepam 2 MG/ML SDV IVPUSH ONE (00:23)
[2024-07-20 05:51] LABS: BASOPHILS PERCENT AUTO 0.5 % (0.0-1.0); EOSINOPHILS ABSOLUTE AUTO 0.1 K/mm3 (0.0-0.4); EOSINOPHILS PERCENT AUTO 0.8 % (0.0-6.0); HEMATOCRIT 34.9 % (37.0-47.0); IMMATURE GRAN ABSOLUTE AUTO 0.01 K/mm3 (0.00-0.05); IMMATURE GRAN PERCENT AUTO 0.2 % (0.0-0.4); LYMPHOCYTES ABSOLUTE AUTO 1.5 K/mm3 (1.0-4.8); MEAN CORPUSCULAR HEMOGLOBIN 38.1 pg (28.0-32.0); MEAN CORPUSCULAR HGB CONC 35.8 g/dl (32.0-36.0); MEAN CORPUSCULAR VOLUME 106.4 fl (83.0-99.0); MEAN PLATELET VOLUME 9.2 fl (9.4-12.3); MONOCYTES ABSOLUTE AUTO 0.6 K/mm3 (0.0-0.8); MONOCYTES PERCENT AUTO 9.3 % (0.0-8.0); NEUTROPHILS ABSOLUTE AUTO 3.9 K/mm3 (1.8-7.7); NEUTROPHILS PERCENT AUTO 64.2 % (41.0-71.0); RED BLOOD CELL COUNT 3.28 M/mm3 (4.10-5.30); WHITE BLOOD CELL COUNT,WBC 6.01 K/mm3 (3.9-11.3)
[2024-07-20 05:53] LABS: HEMOGLOBIN 12.5 gm/dl (12.0-16.0); PLATELET COUNT,PLT 217 K/mm3 (150-400)
[2024-07-20 06:15] LABS: ALANINE AMINOTRANSFERASE,ALT 39 U/L (14-59); ALBUMIN 2.9 g/dl (3.4-5.0); ALKALINE PHOSPHATASE 42 U/L (46-116); ANION GAP 15.9 (5-15); ASPARTATE AMNIOTRANSFERASE,AST 43 U/L (15-37); BILIRUBIN TOTAL 0.5 mg/dL (0.2-1.0); BLOOD UREA NITROGEN,BUN 4 mg/dL (7-18); BUN/CREATININE RATIO 6.7 (14-18); CARBON DIOXIDE,CO2 21 mEq/L (21-32); CHLORIDE,CL 105 mEq/L (98-107); CREATININE 0.6 mg/dL (0.55-1.02); ESTIMATED GFR 125 mL/min (>60); GLUCOSE RANDOM 88 mg/dL (70-99); MAGNESIUM 1.5 mg/dL (1.8-2.4); PHOSPHORUS 3.2 mg/dL (2.6-4.7); POTASSIUM,K 3.9 mEq/L (3.5-5.1); PROTEIN TOTAL,TP 5.7 g/dl (6.4-8.2); SODIUM,NA 138 mEq/L (136-145)
[2024-07-20] MEDS: LORazepam 2 MG/ML SDV IVPUSH PRN (06:50)
[2024-07-20 06:58] LABS: CALCIUM 7.1 mg/dL (8.5-10.1)
[2024-07-20] MEDS ORDERED: LORazepam 1 MG Tab PO PRN (07:09)
[2024-07-20] MEDS ORDERED: Acetaminophen 325 MG Tab PO PRN (08:44)
[2024-07-20] MEDS ORDERED: oxyCODONE 5 MG Tab PO PRN (08:44)
[2024-07-20] MEDS ORDERED: Sennosides/Docusate Sodium 50-8.6 MG Tab PO PRN (08:44)
[2024-07-20] MEDS ORDERED: Ondansetron 4 MG/2 ML SDV IV PRN (08:44)
[2024-07-20] MEDS: Enoxaparin 40 MG/0.4 ML Syringe SUBCUT SCH (09:06)
[2024-07-20] MEDS: Calcium Gluconate 10% 1 GM/10 ML SDV IV ONE (09:06)
[2024-07-20] MEDS: Magnesium Sulf/Wat 4 GM/50 mL 4 GM in Premix Bag 1 BAG IV ONE (09:06)
[2024-07-20 09:23] LABS: FOLIC ACID 2.5 ng/mL (8.6-58.9)
[2024-07-20] MEDS: Thiamine 100 MG Tab PO SCH (20:57)
[2024-07-20] MEDS: Melatonin 3 MG Tab PO PRN (21:00)
[2024-07-21 06:28] LABS: ALANINE AMINOTRANSFERASE,ALT 41 U/L (14-59); ALBUMIN 3.5 g/dl (3.4-5.0); ALKALINE PHOSPHATASE 62 U/L (46-116); ANION GAP 13.7 (5-15); ASPARTATE AMNIOTRANSFERASE,AST 49 U/L (15-37); BILIRUBIN TOTAL 1.3 mg/dL (0.2-1.0); BLOOD UREA NITROGEN,BUN 5 mg/dL (7-18); BUN/CREATININE RATIO 8.3 (14-18); CALCIUM 8.5 mg/dL (8.5-10.1); CARBON DIOXIDE,CO2 25 mEq/L (21-32); CHLORIDE,CL 101 mEq/L (98-107); CREATININE 0.6 mg/dL (0.55-1.02); ESTIMATED GFR 125 mL/min (>60); GLUCOSE RANDOM 99 mg/dL (70-99); MAGNESIUM 2.5 mg/dL (1.8-2.4); POTASSIUM,K 3.7 mEq/L (3.5-5.1); SODIUM,NA 136 mEq/L (136-145)
[2024-07-21] MEDS: Cholecalciferol (Vitamin D3) 5,000 UNIT Cap PO ONE (09:12)
[2024-07-21] MEDS: Folic Acid 1 MG Tab PO ONE (09:12)
[2024-07-21] MEDS: Potassium Chloride 20 MEQ Tab.ER PO ONE (09:12)
[2024-07-21] MEDS: Cyanocobalamin (Vitamin B12) 1,000 MCG Tab PO ONE (09:12)
[2024-07-21 09:14] VITALS: BP 131/94; PULSE 91
[2024-07-27 13:47] LABS: VITAMIN B1, WHOLE BLOOD 116 nmol/L (70-180)
== END 2024-07-21 10:28 | disposition home or self-care (01) | DRG 775 ==
LOC: JD.ED 18:48 → JD.MS 23:27
PROVIDERS: ADMIT Student in an Organized Health Care Education/Training Program; ATTEND Student in an Organized Health Care Education/Training Program
PROC: HZ2ZZZZ Detoxification Services for Substance Abuse Treatment (ICD-10-PCS; principal; 2024-07-19)
DX: F10.139 Alcohol abuse with withdrawal, unspecified (principal); K21.9 Gastro-esophageal reflux disease without esophagitis; G43.909 Migraine, unspecified, not intractable, without status migrainosus; F41.9 Anxiety disorder, unspecified; E86.0 Dehydration; M79.10 Myalgia, unspecified site; F32.A Depression, unspecified; E87.20 Acidosis, unspecified; D75.89 Other specified diseases of blood and blood-forming organs; E55.9 Vitamin D deficiency, unspecified; E53.8 Deficiency of other specified B group vitamins; E87.6 Hypokalemia; Z79.899 Other long term (current) drug therapy; Z86.16 Personal history of COVID-19
CPT/HCPCS: 0241U; 36415; 71045; 71045-26; 80053; 80179; 80307; 81001; 82306; 82550; 82607; 82746; 83605; 83735; 84100; 84425; 84703; 85025; 86308; 87040; 87428-QW; 87651-QW; 93005; 93010; 96361; 96374; 99222; 99239; 99284; 99285-25; A9270-GY; J0612; J0696; J1650; J2060; J3475; J7030

== ENCOUNTER 2024-09-19 19:33 | Emergency (ER) | payer BC ==
[2024-09-19 20:22] LABS: BASOPHILS PERCENT AUTO 0.8 % (0.0-1.0); EOSINOPHILS PERCENT AUTO 0.2 % (0.0-6.0); HEMATOCRIT 43.2 % (37.0-47.0); HEMOGLOBIN 15.5 gm/dl (12.0-16.0); IMMATURE GRAN ABSOLUTE AUTO 0.01 K/mm3 (0.00-0.05); IMMATURE GRAN PERCENT AUTO 0.2 % (0.0-0.4); LYMPHOCYTES ABSOLUTE AUTO 2.2 K/mm3 (1.0-4.8); LYMPHOCYTES PERCENT AUTO 43.4 % (24.0-44.0); MEAN CORPUSCULAR HEMOGLOBIN 36.7 pg (28.0-32.0); MEAN CORPUSCULAR HGB CONC 35.9 g/dl (32.0-36.0); MEAN CORPUSCULAR VOLUME 102.4 fl (83.0-99.0); MEAN PLATELET VOLUME 9.1 fl (9.4-12.3); MONOCYTES ABSOLUTE AUTO 0.5 K/mm3 (0.0-0.8); MONOCYTES PERCENT AUTO 10.4 % (0.0-8.0); NEUTROPHILS ABSOLUTE AUTO 2.3 K/mm3 (1.8-7.7); PLATELET COUNT,PLT 313 K/mm3 (150-400); RED BLOOD CELL COUNT 4.22 M/mm3 (4.10-5.30); WHITE BLOOD CELL COUNT,WBC 5.09 K/mm3 (3.9-11.3)
[2024-09-19] MEDS: Sodium Chloride 0.9% 1,000 ML IV ONE ×2 (20:24→22:20)
[2024-09-19] MEDS: LORazepam 2 MG/ML SDV IVPUSH ONE (20:24)
[2024-09-19] MEDS: Sodium Chloride 0.9% 10 ML Syringe FLUSH PRN (20:30)
[2024-09-19 20:42] LABS: BARBITURATE SCREEN,URINE NEGATIVE (CUTOFF=200); BENZODIAZEPINES SCREEN,URINE NEGATIVE (CUTOFF=150); BUPRENORPHINE SCREEN,URINE NEGATIVE (CUTOFF=10); METHADONE SCREEN, URINE NEGATIVE (CUTOFF=200); METHAMPHETAMINES SCREEN, URINE NEGATIVE (CUTOFF=500); OXYCODONE SCREEN,URINE NEGATIVE (CUT0FF=100); THC SCREEN,URINE 20 NG/ML NEGATIVE (CUTOFF=50)
[2024-09-19 20:48] LABS: A/G RATIO 1.1 (1-2); ALBUMIN 3.9 g/dl (3.4-5.0); BILIRUBIN TOTAL 0.3 mg/dL (0.2-1.0); CALCIUM 8.8 mg/dL (8.5-10.1); EST CRCL DRUG DOSING (CG) 71.68 mL/min; ETHANOL BLOOD MEDICAL 0.35 gm% (0.00); MAGNESIUM 2.1 mg/dL (1.8-2.4); PROTEIN TOTAL,TP 7.4 g/dl (6.4-8.2)
[2024-09-19 20:49] LABS: AMPHETAMINES SCREEN, URINE NEGATIVE (CUTOFF=500)
[2024-09-20] MEDS: LORazepam 2 MG/ML SDV IVPUSH ONE (04:34)
[2024-09-20 06:49] VITALS: BP 108/80; PULSE 94
== END 2024-09-20 06:15 | disposition home or self-care (01) ==
LOC: JD.ED 19:33
DX: F10.130 Alcohol abuse with withdrawal, uncomplicated (principal); R07.9 Chest pain, unspecified; F17.210 Nicotine dependence, cigarettes, uncomplicated; Z79.899 Other long term (current) drug therapy; Z86.16 Personal history of COVID-19; Y90.9 Presence of alcohol in blood, level not specified
CPT/HCPCS: 36415; 71045; 80053; 80306; 80307; 83735; 84484; 84703; 85025; 93005; 96361; 96374; 96376; 99285; J2060; J7030; 93010; 99283

== ENCOUNTER 2024-09-20 18:15 | Emergency (ER) | payer BC ==
[2024-09-20 19:09] LABS: BASOPHILS PERCENT AUTO 0.7 % (0.0-1.0); EOSINOPHILS PERCENT AUTO 0.2 % (0.0-6.0); HEMATOCRIT 39.7 % (37.0-47.0); HEMOGLOBIN 14.3 gm/dl (12.0-16.0); IMMATURE GRAN ABSOLUTE AUTO 0.02 K/mm3 (0.00-0.05); IMMATURE GRAN PERCENT AUTO 0.3 % (0.0-0.4); LYMPHOCYTES ABSOLUTE AUTO 1.2 K/mm3 (1.0-4.8); LYMPHOCYTES PERCENT AUTO 20.2 % (24.0-44.0); MEAN CORPUSCULAR HEMOGLOBIN 37.4 pg (28.0-32.0); MEAN CORPUSCULAR VOLUME 103.9 fl (83.0-99.0); MEAN PLATELET VOLUME 9.5 fl (9.4-12.3); MONOCYTES ABSOLUTE AUTO 0.7 K/mm3 (0.0-0.8); MONOCYTES PERCENT AUTO 12.2 % (0.0-8.0); NEUTROPHILS ABSOLUTE AUTO 3.8 K/mm3 (1.8-7.7); NEUTROPHILS PERCENT AUTO 66.4 % (41.0-71.0); PLATELET COUNT,PLT 260 K/mm3 (150-400); RED BLOOD CELL COUNT 3.82 M/mm3 (4.10-5.30); WHITE BLOOD CELL COUNT,WBC 5.75 K/mm3 (3.9-11.3)
[2024-09-20] MEDS: LORazepam 2 MG/ML SDV IVPUSH ONE (19:29)
[2024-09-20] MEDS: Sodium Chloride 0.9% 1,000 ML IV ONE (19:31)
[2024-09-20 19:37] LABS: A/G RATIO 1.1 (1-2); ALBUMIN 3.8 g/dl (3.4-5.0); ANION GAP 14.7 (5-15); CALCIUM 8.8 mg/dL (8.5-10.1); CREATININE 0.8 mg/dL (0.55-1.02); EST CRCL DRUG DOSING (CG) 89.6 mL/min; PROTEIN TOTAL,TP 7.2 g/dl (6.4-8.2)
[2024-09-20 19:38] LABS: POTASSIUM,K 3.7 mEq/L (3.5-5.1)
[2024-09-20 21:13] VITALS: BP 128/100; PULSE 89
== END 2024-09-20 21:18 | disposition other institution (70) ==
LOC: JD.ED 18:15
DX: I10 Essential (primary) hypertension (principal); Z86.16 Personal history of COVID-19
CPT/HCPCS: 36415; 80053; 84484; 85025; 93005; 93010; 96361; 96374; 99285; 99285-25; J2060; J7030

== ENCOUNTER 2024-11-03 15:03 | Emergency (ER) | payer SELFPAY ==
[2024-11-03] MEDS: Sodium Chloride 0.9% 1,000 ML IV ONE (15:40)
[2024-11-03] MEDS: Sodium Chloride 0.9% 10 ML Syringe FLUSH PRN (15:47)
[2024-11-03 15:49] LABS: BASOPHILS ABSOLUTE AUTO 0.1 K/mm3 (0.0-0.2); BASOPHILS PERCENT AUTO 0.6 % (0.0-1.0); EOSINOPHILS PERCENT AUTO 0.1 % (0.0-6.0); HEMATOCRIT 43.1 % (37.0-47.0); HEMOGLOBIN 15.2 gm/dl (12.0-16.0); IMMATURE GRAN ABSOLUTE AUTO 0.02 K/mm3 (0.00-0.05); IMMATURE GRAN PERCENT AUTO 0.2 % (0.0-0.4); LYMPHOCYTES ABSOLUTE AUTO 1.6 K/mm3 (1.0-4.8); LYMPHOCYTES PERCENT AUTO 20.4 % (24.0-44.0); MEAN CORPUSCULAR HGB CONC 35.3 g/dl (32.0-36.0); MEAN CORPUSCULAR VOLUME 102.1 fl (83.0-99.0); MEAN PLATELET VOLUME 9.2 fl (9.4-12.3); MONOCYTES ABSOLUTE AUTO 0.6 K/mm3 (0.0-0.8); NEUTROPHILS ABSOLUTE AUTO 5.8 K/mm3 (1.8-7.7); NEUTROPHILS PERCENT AUTO 71.7 % (41.0-71.0); PLATELET COUNT,PLT 273 K/mm3 (150-400); RED BLOOD CELL COUNT 4.22 M/mm3 (4.10-5.30); WHITE BLOOD CELL COUNT,WBC 8.05 K/mm3 (3.9-11.3)
[2024-11-03 16:24] LABS: A/G RATIO 1.1 (1-2); ANION GAP 20.2 (5-15); BILIRUBIN TOTAL 0.4 mg/dL (0.2-1.0); CALCIUM 9.1 mg/dL (8.5-10.1); CREATININE 0.8 mg/dL (0.55-1.02); EST CRCL DRUG DOSING (CG) 97.13 mL/min; ETHANOL BLOOD MEDICAL 0.44 gm% (0.00); POTASSIUM,K 3.2 mEq/L (3.5-5.1); PROTEIN TOTAL,TP 7.6 g/dl (6.4-8.2); TSH 1.652 uIU/mL (0.358-3.74)
[2024-11-03 17:25] VITALS: BP 107/71; PULSE 98
[2024-11-03] MEDS: LORazepam 2 MG/ML SDV IVPUSH ONE (19:21)
== END 2024-11-03 19:25 | disposition home or self-care (01) ==
LOC: JD.ED 15:03
DX: F10.120 Alcohol abuse with intoxication, uncomplicated (principal); Z86.16 Personal history of COVID-19; Z79.899 Other long term (current) drug therapy; Y90.9 Presence of alcohol in blood, level not specified
CPT/HCPCS: 36415; 80053; 80143; 80179; 80307; 83735; 84443; 84703; 85025; 96360; 99284; J2060; J7030

== ENCOUNTER 2024-11-04 19:51 | Emergency (ER) | payer SELFPAY ==
[2024-11-04 20:35] LABS: HEMATOCRIT 41.5 % (37.0-47.0); HEMOGLOBIN 14.6 gm/dl (12.0-16.0); MEAN CORPUSCULAR HEMOGLOBIN 36.2 pg (28.0-32.0); MEAN CORPUSCULAR HGB CONC 35.2 g/dl (32.0-36.0); MEAN PLATELET VOLUME 9.2 fl (9.4-12.3); PLATELET COUNT,PLT 211 K/mm3 (150-400); RED BLOOD CELL COUNT 4.03 M/mm3 (4.10-5.30); WHITE BLOOD CELL COUNT,WBC 5.15 K/mm3 (3.9-11.3)
[2024-11-04] MEDS: LORazepam 2 MG/ML SDV IVPUSH ONE (20:35)
[2024-11-04] MEDS: Ondansetron 4 MG/2 ML SDV IVPUSH ONE (20:35)
[2024-11-04] MEDS: Sodium Chloride 0.9% 1,000 ML IV STA (20:35)
[2024-11-04 20:54] LABS: BAND PERCENT MAN 0 % (0-10); BASOPHILS PERCENT MAN 0 (0.1-1.2); EOSINOPHILS PERCENT MAN 1 % (0.7-5.8); LYMPHOCYTES % ATYPICAL MANUAL 2 %; LYMPHOCYTES PERCENT MAN 48 % (20-40); MONOCYTES PERCENT MAN 1 % (2-10)
[2024-11-04 20:55] LABS: PLATELET COUNT ESTIMATE ADEQUATE; TEARDROP CELLS FEW
[2024-11-04 21:04] LABS: A/G RATIO 1.2 (1-2); ANION GAP 17.8 (5-15); BILIRUBIN TOTAL 0.5 mg/dL (0.2-1.0); BUN/CREATININE RATIO 7.5 (14-18); CALCIUM 8.9 mg/dL (8.5-10.1); CREATININE 0.8 mg/dL (0.55-1.02); EST CRCL DRUG DOSING (CG) 93.37 mL/min; ETHANOL BLOOD MEDICAL 0.33 gm% (0.00); POTASSIUM,K 3.8 mEq/L (3.5-5.1); PROTEIN TOTAL,TP 7.3 g/dl (6.4-8.2); TSH 1.382 uIU/mL (0.358-3.74)
[2024-11-05 03:19] VITALS: PULSE 88
[2024-11-05] MEDS: LORazepam 2 MG/ML SDV IVPUSH ONE ×2 (04:22→07:42)
[2024-11-05] MEDS: Ondansetron 4 MG/2 ML SDV IVPUSH ONE (04:22)
[2024-11-05 07:41] LABS: BARBITURATE SCREEN,URINE NEGATIVE (CUTOFF=200); BENZODIAZEPINES SCREEN,URINE PRESUMPTIVE POSITIVE (CUTOFF=150); BUPRENORPHINE SCREEN,URINE NEGATIVE (CUTOFF=10); METHADONE SCREEN, URINE NEGATIVE (CUTOFF=200); METHAMPHETAMINES SCREEN, URINE NEGATIVE (CUTOFF=500); OXYCODONE SCREEN,URINE NEGATIVE (CUT0FF=100); THC SCREEN,URINE 20 NG/ML NEGATIVE (CUTOFF=50)
[2024-11-05 08:12] LABS: AMPHETAMINES SCREEN, URINE NEGATIVE (CUTOFF=500)
[2024-11-05 09:06] VITALS: BP 136/108
== END 2024-11-05 08:50 | disposition left against medical advice (07) ==
LOC: JD.ED 19:51
DX: F10.139 Alcohol abuse with withdrawal, unspecified (principal); R55 Syncope and collapse; K21.9 Gastro-esophageal reflux disease without esophagitis; Z53.29 Procedure and treatment not carried out because of patient's decision for other reasons; Z86.16 Personal history of COVID-19; Y99.8 Other external cause status
CPT/HCPCS: 36415; 80053; 80143; 80179; 80306; 80307; 81025; 84443; 84703; 85007; 85027; 93005; 96361; 96374; 96375; 96376; 99285; J2060; J2405; J7030

== ENCOUNTER 2024-11-06 20:57 | Inpatient (IN) | payer SELFPAY ==
[2024-11-06] MEDS: Sodium Chloride 0.9% 10 ML Syringe FLUSH PRN (23:28)
[2024-11-06] MEDS: Sodium Chloride 0.9% 1,000 ML IV ONE (23:30)
[2024-11-06] MEDS: LORazepam 2 MG/ML SDV IVPUSH ONE (23:31)
[2024-11-06 23:32] LABS: BASOPHILS PERCENT AUTO 0.6 % (0.0-1.0); EOSINOPHILS PERCENT AUTO 0.4 % (0.0-6.0); HEMATOCRIT 36.9 % (37.0-47.0); HEMOGLOBIN 13.3 gm/dl (12.0-16.0); IMMATURE GRAN ABSOLUTE AUTO 0.01 K/mm3 (0.00-0.05); IMMATURE GRAN PERCENT AUTO 0.2 % (0.0-0.4); LYMPHOCYTES ABSOLUTE AUTO 1.7 K/mm3 (1.0-4.8); LYMPHOCYTES PERCENT AUTO 32.1 % (24.0-44.0); MEAN CORPUSCULAR HEMOGLOBIN 36.9 pg (28.0-32.0); MEAN CORPUSCULAR VOLUME 102.5 fl (83.0-99.0); MEAN PLATELET VOLUME 9.5 fl (9.4-12.3); MONOCYTES ABSOLUTE AUTO 0.4 K/mm3 (0.0-0.8); MONOCYTES PERCENT AUTO 8.3 % (0.0-8.0); NEUTROPHILS ABSOLUTE AUTO 3.1 K/mm3 (1.8-7.7); NEUTROPHILS PERCENT AUTO 58.4 % (41.0-71.0); PLATELET COUNT,PLT 143 K/mm3 (150-400); WHITE BLOOD CELL COUNT,WBC 5.33 K/mm3 (3.9-11.3)
[2024-11-06 23:56] LABS: A/G RATIO 1.2 (1-2); ALANINE AMINOTRANSFERASE,ALT 43 U/L (14-59); ALBUMIN 3.7 g/dl (3.4-5.0); ALKALINE PHOSPHATASE 65 U/L (46-116); ANION GAP 19.7 (5-15); ASPARTATE AMNIOTRANSFERASE,AST 86 U/L (15-37); BILIRUBIN TOTAL 0.7 mg/dL (0.2-1.0); BLOOD UREA NITROGEN,BUN 4 mg/dL (7-18); CALCIUM 9.4 mg/dL (8.5-10.1); CARBON DIOXIDE,CO2 22 mEq/L (21-32); CHLORIDE,CL 98 mEq/L (98-107); CREATININE 0.8 mg/dL (0.55-1.02); EST CRCL DRUG DOSING (CG) 93.37 mL/min; ESTIMATED GFR 102 mL/min (>60); ETHANOL BLOOD MEDICAL 0.09 gm% (0.00); GLUCOSE RANDOM 81 mg/dL (70-99); LIPASE 21 U/L (16-77); MAGNESIUM 1.5 mg/dL (1.8-2.4); POTASSIUM,K 3.7 mEq/L (3.5-5.1); PROTEIN TOTAL,TP 6.9 g/dl (6.4-8.2); SODIUM,NA 136 mEq/L (136-145)
[2024-11-06 23:58] LABS: TROPONIN I HIGH SENSITIVITY < 4 pg/mL (<=51)
[2024-11-07] MEDS: Magnesium Sulfate 2 GM/50 mL 2 GM in Premix Bag 1 BAG IV ONE (02:07)
[2024-11-07] MEDS: LORazepam 2 MG/ML SDV IVPUSH ONE ×3 (02:07→11:00)
[2024-11-07 06:02] LABS: APPEARANCE,URINE CLEAR (Clear); BILIRUBIN,URINE NEGATIVE (Negative); COLOR,URINE YELLOW (Yellow); GLUCOSE,URINE NEGATIVE (Negative); KETONES,URINE 2+ (Negative); LEUKOCYTE ESTERASE,URINE NEGATIVE (Negative); NITRITE,URINE NEGATIVE (Negative); OCCULT BLOOD,URINE TRACE-LYSED (Negative); PH,URINE 6.5 (5.0-8.0); PROTEIN,URINE NEGATIVE (Negative); UROBILINOGEN,URINE 0.2 (0.2-1.0)
[2024-11-07 06:14] LABS: BACTERIA,URINE FEW /hpf (FEW); MUCUS,URINE FEW /hpf (FEW); RBC,URINE 0-5 /hpf (0-5); SQUAMOUS EPITHELIAL CELLS,UR 0-5 /hpf (0-5); WBC,URINE 0-5 /hpf (0-5)
[2024-11-07 06:16] LABS: BARBITURATE SCREEN,URINE NEGATIVE (CUTOFF=200); BENZODIAZEPINES SCREEN,URINE PRESUMPTIVE POSITIVE (CUTOFF=150); BUPRENORPHINE SCREEN,URINE NEGATIVE (CUTOFF=10); METHADONE SCREEN, URINE NEGATIVE (CUTOFF=200); METHAMPHETAMINES SCREEN, URINE NEGATIVE (CUTOFF=500); OXYCODONE SCREEN,URINE NEGATIVE (CUT0FF=100); THC SCREEN,URINE 20 NG/ML NEGATIVE (CUTOFF=50)
[2024-11-07 06:21] LABS: AMPHETAMINES SCREEN, URINE NEGATIVE (CUTOFF=500)
[2024-11-07] MEDS: Ondansetron 4 MG/2 ML SDV IVPUSH ONE (11:00)
[2024-11-07] MEDS: droPERidol 2.5 MG/ML SDV IV STA (13:37)
[2024-11-07] MEDS ORDERED: Acetaminophen 325 MG Tab PO PRN (19:11)
[2024-11-07] MEDS ORDERED: Acetaminophen/HYDROcodone 325-5 MG Tab PO PRN (19:11)
[2024-11-07] MEDS ORDERED: Sennosides/Docusate Sodium 50-8.6 MG Tab PO PRN (19:11)
[2024-11-07] MEDS: Enoxaparin 40 MG/0.4 ML Syringe SUBCUT SCH (20:43)
[2024-11-07] MEDS: Thiamine 100 MG Tab PO SCH (20:46)
[2024-11-07] MEDS: Folic Acid 1 MG Tab PO SCH (20:46)
[2024-11-07] MEDS: Ondansetron 4 MG/2 ML SDV IV PRN (23:43)
[2024-11-08] MEDS: LORazepam 2 MG/ML SDV IVPUSH PRN (05:33)
[2024-11-08 07:28] LABS: BASOPHILS PERCENT AUTO 0.2 % (0.0-1.0); EOSINOPHILS ABSOLUTE AUTO 0.1 K/mm3 (0.0-0.4); EOSINOPHILS PERCENT AUTO 2.2 % (0.0-6.0); HEMATOCRIT 39.2 % (37.0-47.0); HEMOGLOBIN 13.6 gm/dl (12.0-16.0); IMMATURE GRAN ABSOLUTE AUTO 0.01 K/mm3 (0.00-0.05); IMMATURE GRAN PERCENT AUTO 0.2 % (0.0-0.4); LYMPHOCYTES ABSOLUTE AUTO 1.1 K/mm3 (1.0-4.8); LYMPHOCYTES PERCENT AUTO 22.3 % (24.0-44.0); MEAN CORPUSCULAR HEMOGLOBIN 36.8 pg (28.0-32.0); MEAN CORPUSCULAR HGB CONC 34.7 g/dl (32.0-36.0); MEAN CORPUSCULAR VOLUME 105.9 fl (83.0-99.0); MEAN PLATELET VOLUME 10.2 fl (9.4-12.3); MONOCYTES ABSOLUTE AUTO 0.4 K/mm3 (0.0-0.8); MONOCYTES PERCENT AUTO 8.3 % (0.0-8.0); NEUTROPHILS ABSOLUTE AUTO 3.4 K/mm3 (1.8-7.7); NEUTROPHILS PERCENT AUTO 66.8 % (41.0-71.0); PLATELET COUNT,PLT 113 K/mm3 (150-400); WHITE BLOOD CELL COUNT,WBC 5.03 K/mm3 (3.9-11.3)
[2024-11-08 08:26] LABS: A/G RATIO 1.1 (1-2); ALBUMIN 3.6 g/dl (3.4-5.0); ANION GAP 22.1 (5-15); BUN/CREATININE RATIO 8.3 (14-18); CALCIUM 8.9 mg/dL (8.5-10.1); CREATININE 0.6 mg/dL (0.55-1.02); EST CRCL DRUG DOSING (CG) 124.49 mL/min; MAGNESIUM 1.9 mg/dL (1.8-2.4); POTASSIUM,K 4.1 mEq/L (3.5-5.1)
[2024-11-08 08:27] LABS: FOLIC ACID 24.7 ng/mL (8.6-58.9)
[2024-11-08] MEDS: Cyanocobalamin (Vitamin B12) 1,000 MCG Tab PO SCH (08:40)
[2024-11-08] MEDS: LORazepam 1 MG Tab PO PRN (09:38)
[2024-11-08] MEDS: Melatonin 3 MG Tab PO PRN (20:49)
[2024-11-09 05:42] LABS: ANION GAP 20.7 (5-15); BUN/CREATININE RATIO 8.6 (14-18); CALCIUM 9.4 mg/dL (8.5-10.1); CREATININE 0.7 mg/dL (0.55-1.02); EST CRCL DRUG DOSING (CG) 106.7 mL/min; MAGNESIUM 1.8 mg/dL (1.8-2.4); PHOSPHORUS 3.2 mg/dL (2.6-4.7); POTASSIUM,K 3.7 mEq/L (3.5-5.1)
[2024-11-09] MEDS: Potassium Chloride 20 MEQ Tab.ER PO ONE (09:37)
[2024-11-09] MEDS: Magnesium Sulfate 2 GM/50 mL 2 GM/50 ML BAG IV ONE (09:38)
[2024-11-09] MEDS: Sodium Chloride 0.9% 100 ML ONE (10:41)
[2024-11-10 08:46] VITALS: BP 118/88; PULSE 108
[2024-11-13 14:46] LABS: VITAMIN B1, WHOLE BLOOD 232 nmol/L (70-180)
== END 2024-11-10 08:50 | disposition home or self-care (01) | DRG 897 ==
LOC: JD.ED 20:57 → JD.ICU 11-07 19:11
PROVIDERS: ADMIT Student in an Organized Health Care Education/Training Program; ATTEND Student in an Organized Health Care Education/Training Program
DX: F10.129 Alcohol abuse with intoxication, unspecified (principal); R56.9 Unspecified convulsions; E83.42 Hypomagnesemia; F17.210 Nicotine dependence, cigarettes, uncomplicated; G43.909 Migraine, unspecified, not intractable, without status migrainosus; Z79.899 Other long term (current) drug therapy; Z87.01 Personal history of pneumonia (recurrent); Z86.16 Personal history of COVID-19; Z98.890 Other specified postprocedural states
CPT/HCPCS: 36415; 70450; 70450-26; 80048; 80053; 80306; 80307; 81001; 82607; 82746; 83690; 83735; 84100; 84425; 84484; 84703; 85025; 93005; 93010; 94760; 96361; 96365; 96366; 96375; 96376; 99222; 99232; 99238; 99284; 99285-25; A9270-GY; J1650; J1790; J2060; J2405; J3475; J7030

== ENCOUNTER 2025-04-20 15:38 | Inpatient (IN) | payer BC ==
[2025-04-20] MEDS ORDERED: Sodium Chloride 0.9% 10 ML Syringe FLUSH PRN (16:06)
[2025-04-20 16:33] LABS: BASOPHILS ABSOLUTE AUTO 0.1 K/mm3 (0.0-0.2); BASOPHILS PERCENT AUTO 1.0 % (0.0-1.0); EOSINOPHILS ABSOLUTE AUTO 0.1 K/mm3 (0.0-0.4); EOSINOPHILS PERCENT AUTO 1.1 % (0.0-6.0); IMMATURE GRAN ABSOLUTE AUTO 0.02 K/mm3 (0.00-0.05); IMMATURE GRAN PERCENT AUTO 0.2 % (0.0-0.4); LYMPHOCYTES ABSOLUTE AUTO 2.8 K/mm3 (1.0-4.8); LYMPHOCYTES PERCENT AUTO 33.7 % (24.0-44.0); MEAN PLATELET VOLUME 8.8 fl (9.4-12.3); MONOCYTES ABSOLUTE AUTO 1.0 K/mm3 (0.0-0.8); MONOCYTES PERCENT AUTO 12.0 % (0.0-8.0); NEUTROPHILS ABSOLUTE AUTO 4.3 K/mm3 (1.8-7.7); NEUTROPHILS PERCENT AUTO 52.0 % (41.0-71.0); NRBC ABSOLUTE 0.00 (0.00-0.02); NRBC PERCENT 0.0 % (0.0-0.2); PLATELET COUNT,PLT 333 K/mm3 (150-400); RED BLOOD CELL COUNT 5.04 M/mm3 (4.10-5.30); WHITE BLOOD CELL COUNT,WBC 8.30 K/mm3 (3.9-11.3)
[2025-04-20] MEDS: Ondansetron 4 MG/2 ML SDV IVPUSH ONE (16:40)
[2025-04-20] MEDS: LORazepam 2 MG/ML SDV IVPUSH ONE (16:41)
[2025-04-20 17:00] LABS: A/G RATIO 1.1 (1-2); ALANINE AMINOTRANSFERASE,ALT 21 U/L (14-59); ASPARTATE AMNIOTRANSFERASE,AST 36 U/L (15-37); BILIRUBIN TOTAL 0.5 mg/dL (0.2-1.0); BLOOD UREA NITROGEN,BUN 10 mg/dL (7-18); CARBON DIOXIDE,CO2 25 mEq/L (21-32); CHLORIDE,CL 106 mEq/L (98-107); CREATININE 0.8 mg/dL (0.55-1.02); EST CRCL DRUG DOSING (CG) 89.60 mL/min; ESTIMATED GFR 102 mL/min (>60); ETHANOL BLOOD MEDICAL 0.40 gm% (0.00); GLUCOSE RANDOM 107 mg/dL (70-99); POTASSIUM,K 3.7 mEq/L (3.5-5.1); PROTEIN TOTAL,TP 8.1 g/dl (6.4-8.2); SODIUM,NA 146 mEq/L (136-145); TSH 2.019 uIU/mL (0.358-3.74)
[2025-04-20 17:04] LABS: HCG QUANTITATIVE < 1.0 mIU/mL
[2025-04-20 17:11] LABS: BUPRENORPHINE SCREEN,URINE NEGATIVE (CUTOFF=10); METHADONE SCREEN, URINE NEGATIVE (CUTOFF=200); METHAMPHETAMINES SCREEN, URINE NEGATIVE (CUTOFF=500); OXYCODONE SCREEN,URINE NEGATIVE (CUT0FF=100); THC SCREEN,URINE 20 NG/ML NEGATIVE (CUTOFF=50)
[2025-04-20 17:13] LABS: AMPHETAMINES SCREEN, URINE NEGATIVE (CUTOFF=500)
[2025-04-20] MEDS ORDERED: LORazepam 2 MG/ML SDV IV PRN (18:19)
[2025-04-20 18:38] LABS: PHOSPHORUS 2.8 mg/dL (2.6-4.7)
[2025-04-20] MEDS: Lactated Ringers 1,000 ML IV SCH (20:09)
[2025-04-20] MEDS: LORazepam 2 MG/ML SDV IV PRN (20:10)
[2025-04-21 06:01] LABS: BASOPHILS ABSOLUTE AUTO 0.0 K/mm3 (0.0-0.2); BASOPHILS PERCENT AUTO 0.6 % (0.0-1.0); EOSINOPHILS ABSOLUTE AUTO 0.0 K/mm3 (0.0-0.4); EOSINOPHILS PERCENT AUTO 0.6 % (0.0-6.0); IMMATURE GRAN ABSOLUTE AUTO 0.01 K/mm3 (0.00-0.05); IMMATURE GRAN PERCENT AUTO 0.2 % (0.0-0.4); LYMPHOCYTES ABSOLUTE AUTO 1.4 K/mm3 (1.0-4.8); LYMPHOCYTES PERCENT AUTO 22.3 % (24.0-44.0); MEAN PLATELET VOLUME 9.0 fl (9.4-12.3); MONOCYTES ABSOLUTE AUTO 0.7 K/mm3 (0.0-0.8); MONOCYTES PERCENT AUTO 10.8 % (0.0-8.0); NEUTROPHILS ABSOLUTE AUTO 4.2 K/mm3 (1.8-7.7); NEUTROPHILS PERCENT AUTO 65.5 % (41.0-71.0); NRBC ABSOLUTE 0.00 (0.00-0.02); NRBC PERCENT 0.0 % (0.0-0.2); RED BLOOD CELL COUNT 3.80 M/mm3 (4.10-5.30); WHITE BLOOD CELL COUNT,WBC 6.36 K/mm3 (3.9-11.3)
[2025-04-21 06:02] LABS: PLATELET COUNT,PLT 210 K/mm3 (150-400)
[2025-04-21 06:23] LABS: A/G RATIO 1.0 (1-2); ALANINE AMINOTRANSFERASE,ALT 20.0 U/L (14-59); ASPARTATE AMNIOTRANSFERASE,AST 41.0 U/L (15-37); BILIRUBIN TOTAL 0.9 mg/dL (0.2-1.0); BLOOD UREA NITROGEN,BUN 9.0 mg/dL (7-18); CARBON DIOXIDE,CO2 23.0 mEq/L (21-32); CHLORIDE,CL 107.0 mEq/L (98-107); CREATININE 0.6 mg/dL (0.55-1.02); EST CRCL DRUG DOSING (CG) 124.49 mL/min; ESTIMATED GFR 125.0 mL/min (>60); GLUCOSE RANDOM 82.0 mg/dL (70-99); POTASSIUM,K 3.5 mEq/L (3.5-5.1); PROTEIN TOTAL,TP 5.9 g/dl (6.4-8.2); SODIUM,NA 142.0 mEq/L (136-145)
[2025-04-22] MEDS: Ondansetron 4 MG/2 ML SDV IV PRN (01:15)
[2025-04-22 04:45] LABS: BASOPHILS ABSOLUTE AUTO 0.0 K/mm3 (0.0-0.2); BASOPHILS PERCENT AUTO 0.8 % (0.0-1.0); EOSINOPHILS ABSOLUTE AUTO 0.1 K/mm3 (0.0-0.4); EOSINOPHILS PERCENT AUTO 1.4 % (0.0-6.0); IMMATURE GRAN ABSOLUTE AUTO 0.01 K/mm3 (0.00-0.05); IMMATURE GRAN PERCENT AUTO 0.2 % (0.0-0.4); LYMPHOCYTES ABSOLUTE AUTO 1.5 K/mm3 (1.0-4.8); LYMPHOCYTES PERCENT AUTO 29.1 % (24.0-44.0); MEAN PLATELET VOLUME 9.0 fl (9.4-12.3); MONOCYTES ABSOLUTE AUTO 0.7 K/mm3 (0.0-0.8); MONOCYTES PERCENT AUTO 13.2 % (0.0-8.0); NEUTROPHILS ABSOLUTE AUTO 2.8 K/mm3 (1.8-7.7); NEUTROPHILS PERCENT AUTO 55.3 % (41.0-71.0); NRBC ABSOLUTE 0.00 (0.00-0.02); NRBC PERCENT 0.0 % (0.0-0.2); PLATELET COUNT,PLT 186 K/mm3 (150-400); RED BLOOD CELL COUNT 3.97 M/mm3 (4.10-5.30); WHITE BLOOD CELL COUNT,WBC 5.08 K/mm3 (3.9-11.3)
[2025-04-22 05:19] LABS: A/G RATIO 0.9 (1-2); ALANINE AMINOTRANSFERASE,ALT 20.0 U/L (14-59); ASPARTATE AMNIOTRANSFERASE,AST 28.0 U/L (15-37); BILIRUBIN TOTAL 1.3 mg/dL (0.2-1.0); BLOOD UREA NITROGEN,BUN 5.0 mg/dL (7-18); CARBON DIOXIDE,CO2 23.0 mEq/L (21-32); CHLORIDE,CL 100.0 mEq/L (98-107); CREATININE 0.5 mg/dL (0.55-1.02); EST CRCL DRUG DOSING (CG) 149.39 mL/min; ESTIMATED GFR 130.0 mL/min (>60); GLUCOSE RANDOM 86.0 mg/dL (70-99); POTASSIUM,K 3.6 mEq/L (3.5-5.1); PROTEIN TOTAL,TP 6.7 g/dl (6.4-8.2); SODIUM,NA 136.0 mEq/L (136-145)
[2025-04-22] MEDS: Magnesium Sulfate 2 GM/50 mL 2 GM in Premix Bag 1 BAG IV ONE (09:32)
[2025-04-23 08:07] LABS: A/G RATIO 1.0 (1-2); ALANINE AMINOTRANSFERASE,ALT 20.0 U/L (14-59); ASPARTATE AMNIOTRANSFERASE,AST 21.0 U/L (15-37); BILIRUBIN TOTAL 0.7 mg/dL (0.2-1.0); BLOOD UREA NITROGEN,BUN 8.0 mg/dL (7-18); CARBON DIOXIDE,CO2 26.0 mEq/L (21-32); CHLORIDE,CL 101.0 mEq/L (98-107); CREATININE 0.6 mg/dL (0.55-1.02); EST CRCL DRUG DOSING (CG) 124.49 mL/min; ESTIMATED GFR 125.0 mL/min (>60); GLUCOSE RANDOM 99.0 mg/dL (70-99); POTASSIUM,K 3.5 mEq/L (3.5-5.1); PROTEIN TOTAL,TP 7.0 g/dl (6.4-8.2); SODIUM,NA 138.0 mEq/L (136-145)
[2025-04-23 10:07] VITALS: BP 131/83; PULSE 107
== END 2025-04-23 09:49 | disposition home or self-care (01) | DRG 775 ==
LOC: JD.ED 15:38 → JD.MS 18:16
PROVIDERS: ADMIT Family Medicine; ATTEND Family Medicine
DX: F10.239 Alcohol dependence with withdrawal, unspecified (principal); Y90.0 Blood alcohol level of less than 20 mg/100 ml; F41.9 Anxiety disorder, unspecified; K21.9 Gastro-esophageal reflux disease without esophagitis; K59.09 Other constipation; F17.210 Nicotine dependence, cigarettes, uncomplicated; E83.42 Hypomagnesemia; G43.909 Migraine, unspecified, not intractable, without status migrainosus; Z86.16 Personal history of COVID-19; Z79.899 Other long term (current) drug therapy; Z87.01 Personal history of pneumonia (recurrent); Z98.890 Other specified postprocedural states; Z71.6 Tobacco abuse counseling
CPT/HCPCS: 36415; 80053; 80143; 80179; 80306; 80307; 83735; 84100; 84425; 84443; 84702; 85025; 93005; 93010; 96361; 96374; 96375; 99223; 99232; 99239; 99284; 99285-25; A9270-GY; J1650; J2060; J2405; J3475; J3480; J7030; J7120